=== PATIENT | female | born 1985 | race Caucasian/White ===

== ENCOUNTER 2020-05-26 12:33 | Outpatient (RCR) | payer MEDICARE, MEDICAID, SELFPAY | END 2020-06-16 23:59 | disposition home or self-care (01) | LOC: SPT 12:33 | PROVIDERS: PCP Family Medicine; Visit Provider Family Medicine | DX: S83.091D Other subluxation of right patella, subsequent encounter (principal); X58.XXXD Exposure to other specified factors, subsequent encounter | CPT/HCPCS: 97110; 97161 ==

== ENCOUNTER 2020-06-23 20:00 | Outpatient (CLI) | payer MEDICARE, MEDICAID, SELFPAY | END 2020-06-23 20:01 | disposition home or self-care (01) | LOC: SLEEP 06-24 09:57 | PROVIDERS: PCP Family Medicine; Visit Provider Family Medicine | DX: G47.33 Obstructive sleep apnea (adult) (pediatric) (principal) | CPT/HCPCS: 95811 ==

== ENCOUNTER 2020-08-22 06:03 | Day surgery (SDC) | payer MEDICARE, MEDICAID, SELFPAY ==
[2020-08-21 11:15] VITALS: BMI 67.3
[2020-08-22 06:33] VITALS: BP 115/70; PULSE 93; RESP 18; TEMP 36.9; O2SAT 93
[2020-08-22] MEDS: sodium chloride 0.9% 1,000 ML 30 ML IV (06:43)
--- NOTE | 2020-08-22 06:50 | ANES.PREANE2 ---
Pre-Anesthetic Assessment Pre-Anesthetic Assessment: Height/Weight: Height 1.35 m Weight 122.016 kg Temp Pulse Resp BP Pulse Ox 98.4 F 93 18 115/70 93 08/22/20 06:33 08/22/20 06:33 08/22/20 06:33 08/22/20 06:33 08/22/20 06:33 Preop Diagnosis: epigastric pain Proposed Procedure: Operation Date: 08/22/20 07:00 Proposed Procedures p EGD(Not Applicable) - Alexander Steven MD Was Beta Reanna taken within 24 hours: N/A Last intake: Intake Last Liquid Date 08/21/20 Last Solid Date 08/21/20 Last Intake: 00:00 Social: Social History: No alcohol and No tobacco Exam: Pre-Anes Outpt Exam: alert, oriented x 3, clear to auscultation bilaterally and regular rate & rhythm Additional Exam Findings (including area of procedure): MR Airway: Submandibular: Other Cervical ROM: Other MP: 4 (Thick neck. Poss diff intubation) Dentition: Full History/ROS: No significant history except as noted and No significant complaints Pulmonary: Pulmonary: Asthma, PIKE and SOB Comments: Pulm HTN. CV/HEM: CV/HEM: CHF : : None reported Hepatic: Hepatic: None reported GI: GI: GERD Metabolic: Metabolic: Morbid obesity Musc/skel: Musc/skel: OA/DJD Neuropsych: Neuropsych: None reported Anesthetic Plan: ASA status: 4 Anesthesia: MAC Risk of > 500 ml blood loss (7ml/kg in children): No Meds/Allergies Current Medications: Current Medications Generic Name Dose Route Start Last Admin Trade Name Freq PRN Reason Stop Dose Admin Sodium Chloride 1,000 mls @ 30 ml s/hr 08/22/20 06:15 08/22/20 06:43 Sodium Chloride 0.9% IV 08/23/20 06:14 30 mls/hr .Q24H TISH Administration Data Anesthesia Cardiac Studies: No Data to Display
--- NOTE | 2020-08-22 07:18 | W.PM.OPSUD ---
Surgery/Procedure H&P Update DATE OF PROCEDURE: August 22, 2020 DATE H&P PERFORMED: 07/25/20 PREOP DIAGNOSIS: epigastric pain PLANNED PROCEDURE: Operation Date: 08/22/20 07:00 Proposed Procedures p EGD(Not Applicable) - Alexander Steven MD Related Problem List Diagnoses (1) Epigastric pain: (2) Down syndrome:
[2020-08-22 07:24] VITALS: BP 99/54; PULSE 91; RESP 20; TEMP 36.3; O2SAT 97
[2020-08-22 07:49] VITALS: BP 112/83; PULSE 99; RESP 20; O2SAT 93
--- NOTE | 2020-08-22 15:26 | ANE.PACU2 ---
Inpatient post-anesthesia follow up: Airway intact: Yes Vital signs: Temperature 97.4 F Pulse Rate 99 Respiratory Rate 20 Blood Pressure 112/83 Pulse Oximetry 93 Oxygen Delivery Me thod Nasal Cannula Oxygen Flow Rate 1 Fraction of Inspir ed Oxygen Hydration adequate: Yes Nausea and vomiting: No Pain level: 2 Mental status: Baseline
[2020-08-25 14:15] LABS: H. Pylori / CLO Test Negative
== END 2020-08-22 07:59 | disposition home or self-care (01) ==
PROVIDERS: PCP Family Medicine; Visit Provider Family Medicine
PROC: 0DJ08ZZ Inspection of Upper Intestinal Tract, Via Natural or Artificial Opening Endoscopic (ICD-10-PCS; CPT 43235; principal; 2020-08-22 07:00)
DX: R10.13 Epigastric pain (principal); Q90.9 Down syndrome, unspecified; K57.30 Diverticulosis of large intestine without perforation or abscess without bleeding; K29.70 Gastritis, unspecified, without bleeding; K25.9 Gastric ulcer, unspecified as acute or chronic, without hemorrhage or perforation; G47.30 Sleep apnea, unspecified; J45.909 Unspecified asthma, uncomplicated; E66.01 Morbid (severe) obesity due to excess calories; Z68.44 Body mass index [BMI] 60.0-69.9, adult; K21.9 Gastro-esophageal reflux disease without esophagitis; M19.90 Unspecified osteoarthritis, unspecified site
CPT/HCPCS: 12345; 43239; 87077; 88305; J2704; J7030

== ENCOUNTER 2021-05-09 10:46 | Inpatient (IN) | payer MEDICARE, MEDICAID, SELFPAY ==
[2021-05-09] VITALS (10 sets, daily range): BP systolic 99–122; BP diastolic 58–75; PULSE 60–110; RESP 16–26; TEMP 36.8–38.1; O2SAT 88–100; BMI 31.7
--- NOTE | 2021-05-09 10:58 | XRR_ITS ---
PROCEDURE INFORMATION: Exam: XR Chest Exam date and time: 05/09/2021 10:58 AM Age: 35 years old Clinical indication: Cough; Additional info: Dyspnea/cough TECHNIQUE: Imaging protocol: XR of the chest. Views: 1 view. COMPARISON: CR Chest 1 [place] [id number] 05/19/2019 7:13 PM FINDINGS: Lungs: There are bibasilar pulmonary infiltrates greater on the right side. Pleural spaces: Unremarkable. No pleural effusion. No pneumothorax. Heart/Mediastinum: Unremarkable. No cardiomegaly. Bones/joints: Unremarkable. XR/XR chest 1V portable [id number] IMPRESSION: Bibasilar pulmonary infiltrates. These may be due to a viral pneumonia. Radiation Dose CTDIVOL = (mGy): DLP = (mGy-cm)
--- NOTE | 2021-05-09 11:00 | ECG_ITS ---
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 Measurements Intervals [place] Rate: 109 P: 20 AL: 151 QRS: 64 QRSD: 86 T: 42 QT: 296 QTc: 399 Interpretive Statements SINUS TACHYCARDIA LOW QRS VOLTAGE IN PRECORDIAL LEADS [QRS DEFLECTION < 1.0 mV IN CHEST LEADS] Compared to ECG 05/19/2019 22:14:22 Sinus rhythm no longer present Electronically Signed On 05-10-2021 0:25:35 CDT by Bo Avila M.D. [id number] f
[2021-05-09 11:01] LABS: Alveolar-Arterial Oxygen Gradi 65.5 mmHg (5-10); Arterial Blood Gas Hematocrit 37.4 % (37-47); Base Excess ABG 12.2 mmol/L (-2.0-2.0); Blood Gas Allen Test Pos; Blood Gas Operator Identificat AMH; Blood Gas Sample Site Radial, left; Blood Gas Sample Type Arterial; HCO3 ABG 39.6 mmol/L (22-26); HGB O2 Sat 96.5 % (95-100); Ionized Calcium Level - ABG 1.2 mmol/L (1.1-1.4); Methemoglobin 0.8 % (0.4-1.5); Oxygen Device NRB; Oxygen Saturation ABG 98.2; Potassium Level - ABG 4.8 mmol/L (3.5-5.0); Total Hemoglobin 12.2 g/dL (12-16)
[2021-05-09 11:03] LABS: ABG PCO2 64.6 mmHg (35-45)
--- NOTE | 2021-05-09 11:10 | W.ED.SOB ---
HPI - SOB/Dyspnea General: Chief Complaint: Shortness of Breath/Dyspnea Stated Complaint: CHEST PAIN; SOB Time Seen by Provider: 05/09/21 10:49 History of Present Illness: HPI Narrative: 35-year-old female with a history of Down syndrome sleep apnea and pickwickian syndrome presents emergency room via EMS was called with complaints of chest discomfort and hypoxia. On arrival here she is on a 15 L nonrebreather however her oxygen sat is not tracking well intermittently go from the low 80s all the way to 100. She is awake and conversant essentially at her baseline. She does complain of some chest and abdominal discomfort. MD elicited complaint: shortness of breath and cough Pertinent past history: congestive heart failure, pneumonia and other (Pulmonary hypertension) Onset (ago): day(s) Severity: moderate Exacerbating factors: exertion and coughing Relieving factors: oxygen and rest Known history of: congestive heart failure and recurrent pneumonia Associated symptoms: Reports abdominal pain, chest congestion, chest pain and cough; Deny diaphoresis, dizziness, extremity pain, fever(s), hemoptysis, lightheadedness, myalgias, nausea, orthopnea, palpitations, paresthesias, polydipsia, polyuria, rash, sense of impending doom, syncope or vomiting Treatment prior to arrival: oxygen Review of Systems Const: Denies: fever(s) or diaphoresis ENMT: Denies: throat pain, ear or mastoid pain, nasal discharge or nasal congestion Card: Reports: chest pain; Denies: palpitations, lightheadedness, syncope or orthopnea Resp: Reports: chest congestion; Denies: hemoptysis GI: Reports: abdominal pain; Denies: nausea or vomiting : Denies: flank pain, difficulty voiding, dysuria, urinary frequency or urinary urgency Musc: Denies: extremity pain Skin/Breast: Denies: rash or pruritus Neuro: Denies: dizziness Endo: Denies: polyuria or polydipsia PFS ED PFSH: Medical History (Updated 05/09/21 @ 13:38 by Agustin Mejia MD) Abnormal TSH Acute bronchitis Allergic rhinitis Aortic valve sclerosis Asthma Asthma exacerbation BMI 60.0-69.9, adult Central sleep apnea Chronic diastolic CHF (congestive heart failure) Chronic osteoarthritis Club foot of both lower extremities Congestive heart failure Cough Dietary counseling and surveillance Down syndrome Edema Encounter for health education Epigastric pain Excessive sleepiness Hyperglycemia Hypoxia Knee deformity, congenital Macrocytosis Morbid obesity Obesity Overweight or obesity Pneumonia Pulmonary hypertension Right ankle pain Ringworm RUQ abdominal tenderness RUQ pain Screening for diabetes mellitus Screening, lipid Sleep apnea URI, acute Vitamin B 12 deficiency Weight gain Surgical History (Updated 05/09/21 @ 13:38 by Agustin Mejia MD) History of foot surgery Physical Exam Const: COMMON NORMALS: no acute distress GENERAL APPEARANCE: cooperative and comfortable ORIENTATION/CONSCIOUSNESS: Yes awake HENMT: COMMON NORMALS: normocephalic, atraumatic and hearing grossly normal bilaterally HEAD & SCALP: normocephalic and atraumatic Eye: COMMON NORMALS: Equal, round and reactive pupils present, EOMs intact bilaterally, conjunctivae normal and no scleral icterus CONJUNCTIVA: Yes conjunctivae normal PUPIL: Yes Equal, round and reactive pupils present Neck/C-Spine: COMMON NORMALS: full ROM, no lymphadenopathy, supple and no JVD Lymph: LYMPHATIC: no lymphedema noted Resp: COMMON NORMALS: normal respiratory effort, No retractions, No use of accessory muscles and clear to auscultation bilaterally AUSCULTATION: clear to auscultation bilaterally Cardio: COMMON NORMALS: no JVD, regular rate, regular rhythm and No murmurs present (Cardio) RATE: regular rate RHYTHM: regular rhythm GI: COMMON NORMALS: Soft to palpation and No hepatosplenomegaly present AUSCULTATION: Yes normoactive bowel sounds PALPATION: Yes Soft to palpation, No Tenderness to palpation present (GI), No Guarding due to palpation present (GI) and Yes No hepatosplenomegaly present Extremity: COMMON NORMALS: normal to inspection, capillary refill normal and no calf tenderness GENERAL: Yes edema (3+ lower extremity edema) Skin: COMMON NORMALS: no rashes or lesions noted GENERAL SKIN EXAM: no rashes or lesions noted Course Vital Signs: Vital signs: Vital Signs Temperature 98.3 F 05/09/21 10:50 Pulse Rate 70 05/09/21 14:06 Respiratory Rate 26 H 05/09/21 10:50 Blood Pressure 99/73 05/09/21 13:15 Pulse Oximetry 92 05/09/21 14:06 MDM - SOB/Dyspnea MDM Narrative: Medical decision making narrative: Hypoxia with bilateral lower lobe pneumonia. Discussed with hospitalist will test for Covid she is on BiPAP now doing well Levaquin and Zosyn started. Lab Data: Labs: Lab Results 05/09/21 05/09/21 05/09/21 10:49 11:50 11:50 WBC 10.7 10^3/uL H 10 ^3/uL (4.0-10.0) RBC 3.83 10^6/uL L 10 ^6/uL (4.1-5.3) Hgb 11.6 g/dL g/dL (11.5-15.3) Hct 37.9 % % (37.0-47.0) MCV 99.0 fl fl (81-99) MCH 30.3 pg pg (28.0-34.0) MCHC 30.6 g/dL g/dL (30.0-36.0) RDW 19.9 % H % (12.1-15.1) Plt Count 314 10^3/cmm 10^3 /cmm (130-400) MPV 9.8 fL fL (7.4-10.4) Neut % (Auto) 78.0 % % Lymph % (Auto) 11.5 % % [place] % (Auto) 9.3 % % Eos % (Auto) 0.1 % % Baso % (Auto) 0.7 % % Neut # (Auto) 8.33 10^3/uL H 10 ^3/uL (1.8-7.7) Lymph # (Auto) 1.2 10^3/uL 10^3/ uL (0.8-4.8) [place] # (Auto) 1.0 10^3/uL H 10^ 3/uL (0.2-0.9) Eos # (Auto) 0.0 10^3/uL 10^3/ uL (0.0-0.8) Baso # (Auto) 0.1 10^3/uL 10^3/ uL (0.0-0.1) Nucleated RBC % (a uto) 0.2 % % Nucleated RBCs # 0.0 /100WBC /100W BC Specimen Type Arterial Sample Site Radial, left ABG pH 7.40 (7.35-7.45) ABG pCO2 64.6 mmHg H* mmHg (35-45) ABG pO2 130.0 mmHg H mmHg (80.0-100.0) ABG HCO3 39.6 mmol/L H mmo l/L (22-26) ABG O2 Saturation 98.2 ABG Base Excess 12.2 mmol/L H mmo l/L (-2.0-2.0) Kavon Test Pos A-a O2 Gradient 65.5 mmHg H mmHg (5-10) Hematocrit 37.4 % % (37-47) Hgb O2 Saturation 96.5 % % (95-100) Carboxyhemoglobin 1.0 %THgb %THgb (0.4-20.1) Methemoglobin 0.8 % % (0.4-1.5) Total Hemoglobin 12.2 g/dL g/dL (12-16) Sodium 140.0 mmol/L mmol /L (131-143) Potassium 4.8 mmol/L mmol/L (3.5-5.0) Glucose 117.0 mg/dL H mg/ dL (70-115) Ionized Calcium 1.2 mmol/L mmol/L (1.1-1.4) O2 Delivery Device Nrb O2 Liters/Min 15.0 % % FiO2 100.0 % % Deputy Administrator ID Amh Chloride Carbon Dioxide Anion Gap BUN Creatinine GFR Calculation Calculated Osmolal ity Lactic Acid 0.6 mmol/L mmol/L (0.5-2.2) Calcium Total Bilirubin AST ALT Alkaline Phosphata se Troponin T Baselin e Total Protein Albumin Globulin Lipase Urine Color Urine Appearance Urine pH Ur Specific Gravit y Urine Protein Urine Glucose (UA) Urine Ketones Urine Blood Urine Nitrate Urine Bilirubin Urine Urobilinogen Ur Leukocyte [place] ase Urine RBC Urine WBC Ur Squamous Epith Cells Amorphous Sediment Urine Bacteria Urine Mucus SARS-CoV-2 Ag (Rap id) 05/09/21 05/09/21 05/09/21 11:50 11:50 12:34 WBC RBC Hgb Hct MCV MCH MCHC RDW Plt Count MPV Neut % (Auto) Lymph % (Auto) [place] % (Auto) Eos % (Auto) Baso % (Auto) Neut # (Auto) Lymph # (Auto) [place] # (Auto) Eos # (Auto) Baso # (Auto) Nucleated RBC % (a uto) Nucleated RBCs # Specimen Type Sample Site ABG pH ABG pCO2 ABG pO2 ABG HCO3 ABG O2 Saturation ABG Base Excess Kavon Test A-a O2 Gradient Hematocrit Hgb O2 Saturation Carboxyhemoglobin Methemoglobin Total Hemoglobin Sodium 139 mmol/L mmol/L (136-145) Potassium 4.0 mmol/L mmol/L (3.5-5.1) Glucose 105 mg/dL mg/dL (65-115) Ionized Calcium O2 Delivery Device O2 Liters/Min FiO2 Deputy Administrator ID Chloride 96 mmol/L L mmol/ L (98-107) Carbon Dioxide 37 mmol/L H mmol/ L (22-29) Anion Gap 10.0 (5-19) BUN 16 mg/dL mg/dL (6-20) Creatinine 0.8 mg/dL mg/dL (0.5-0.9) GFR Calculation 82.6 mL/min L mL/ min (90-130) Calculated Osmolal ity 290 mOsm/kg mOsm/ kg (285-295) Lactic Acid Calcium 8.6 mg/dL mg/dL (8.5-10.5) Total Bilirubin 0.3 mg/dL mg/dL (0.15-1.2) AST 20 U/L U/L (0-32) ALT 28 U/L U/L (0-33) Alkaline Phosphata se 97 IU/L IU/L (35-105) Troponin T Baselin e 39 ng/L H ng/L (0-10) Total Protein 7.1 g/dL g/dL (6.6-8.7) Albumin 3.7 g/dL g/dL (3.5-5.2) Globulin 3.4 g/dL g/dL (1.3-4.6) Lipase 11 U/L L U/L (13-60) Urine Color Yellow (Yellow) Urine Appearance Sl hazy (CLEAR) Urine pH 7 (5-7) Ur Specific Gravit y 1.010 (1.005-1.030) Urine Protein Trace (Negative) Urine Glucose (UA) Norm (Normal) Urine Ketones Negative (Negative) Urine Blood Neg (Negative) Urine Nitrate Negative (Negative) Urine Bilirubin Neg (Negative) Urine Urobilinogen 1 mg/dL H mg/dL (Negative) Ur Leukocyte [place] ase Negative (Negative) Urine RBC None /hpf /hpf (0-2) Urine WBC 0-4 /hpf H /hpf (0-5) Ur Squamous Epith Cells 5-10 /hpf H /hpf (0-5) Amorphous Sediment Not Reportable Urine Bacteria Trace /hpf /hpf (NONE) Urine Mucus Trace /hpf /hpf SARS-CoV-2 Ag (Rap id) 05/09/21 13:09 WBC RBC Hgb Hct MCV MCH MCHC RDW Plt Count MPV Neut % (Auto) Lymph % (Auto) [place] % (Auto) Eos % (Auto) Baso % (Auto) Neut # (Auto) Lymph # (Auto) [place] # (Auto) Eos # (Auto) Baso # (Auto) Nucleated RBC % (a uto) Nucleated RBCs # Specimen Type Sample Site ABG pH ABG pCO2 ABG pO2 ABG HCO3 ABG O2 Saturation ABG Base Excess Kavon Test A-a O2 Gradient Hematocrit Hgb O2 Saturation Carboxyhemoglobin Methemoglobin Total Hemoglobin Sodium Potassium Glucose Ionized Calcium O2 Delivery Device O2 Liters/Min FiO2 Deputy Administrator ID Chloride Carbon Dioxide Anion Gap BUN Creatinine GFR Calculation Calculated Osmolal ity Lactic Acid Calcium Total Bilirubin AST ALT Alkaline Phosphata se Troponin T Baselin e Total Protein Albumin Globulin Lipase Urine Color Urine Appearance Urine pH Ur Specific Gravit y Urine Protein Urine Glucose (UA) Urine Ketones Urine Blood Urine Nitrate Urine Bilirubin Urine Urobilinogen Ur Leukocyte [place] ase Urine RBC Urine WBC Ur Squamous Epith Cells Amorphous Sediment Urine Bacteria Urine Mucus SARS-CoV-2 Ag (Rap id) Negative (Negative) Discharge Plan Discharge Patient Disposition: Admitted As Inpatient Admit Provider: Agustin Mejia Clinical Impression: Community acquired pneumonia, Down syndrome Condition: Stable Discharge Diet: Usual diet Discharge Activity: Limit activity as instructed Coding Level of Care Code ED Insurance Verify Rep for Main Fwd Exam Comprehensive
[2021-05-09] MEDS: ondansetron 2 mg/ML SDV 2 mL 4 MG IVP ×2 (12:07→17:59)
[2021-05-09 12:11] LABS: Basophils # 0.1 10^3/uL (0.0-0.1); Basophils % 0.7 %; Eosinophils % 0.1 %; Hematocrit 37.9 % (37.0-47.0); Hemoglobin 11.6 g/dL (11.5-15.3); Lymphocytes # 1.2 10^3/uL (0.8-4.8); Lymphocytes % 11.5 %; Mean Corpuscular HGB Conc 30.6 g/dL (30.0-36.0); Mean Corpuscular Hemoglobin 30.3 pg (28.0-34.0); Mean Platelet Volume 9.8 fL (7.4-10.4); Monocytes % 9.3 %; Neutrophils # 8.33 10^3/uL (1.8-7.7); Nucleated Red Blood Cells % 0.2 %; Platelet Count 314 10^3/cmm (130-400); Red Blood Count 3.83 10^6/uL (4.1-5.3); Red Cell Distribution Width 19.9 % (12.1-15.1); White Blood Count 10.7 10^3/uL (4.0-10.0)
[2021-05-09 12:17] LABS: Lactic Sepsis W/Reflex 0.6 mmol/L (0.5-2.2)
[2021-05-09 12:35] LABS: Alanine Aminotransferase 28 U/L (0-33); Albumin Level 3.7 g/dL (3.5-5.2); Alkaline Phosphatase 97 IU/L (35-105); Aspartate Amino Transferase 20 U/L (0-32); Blood Urea Nitrogen 16 mg/dL (6-20); Calcium 8.6 mg/dL (8.5-10.5); Carbon Dioxide 37 mmol/L (22-29); Chloride 96 mmol/L (98-107); Globulin 3.4 g/dL (1.3-4.6); Glomerular Filtration Rate 82.6 mL/min (90-130); Glucose 105 mg/dL (65-115); Lipase 11 U/L (13-60); Osmolality Calculated 290 mOsm/kg (285-295); Sodium 139 mmol/L (136-145); Total Bilirubin 0.3 mg/dL (0.15-1.2); Total Protein 7.1 g/dL (6.6-8.7)
[2021-05-09 12:38] LABS: Troponin(5th) Baseline 39 ng/L (0-10)
[2021-05-09 12:55] LABS: Bilirubin Urine Neg (Negative); Blood Urine Neg (Negative); Glucose Urine UA Norm (Normal); Ketones Urine Negative (Negative); Leukocyte Esterase Urine Negative (Negative); Nitrate Urine Negative (Negative); Protein Urine Trace (Negative); Urine Appearance SL Hazy (CLEAR); Urine Color Yellow (Yellow); Urobilinogen Urine 1 mg/dL (Negative); pH Urine 7 (5-7)
[2021-05-09 12:56] LABS: Add Urine Microscopic? YES
[2021-05-09 12:57] LABS: WBC Urine 0-4 /hpf (0-5)
[2021-05-09 12:58] LABS: Add Urine Culture? No; Bacteria Urine TRACE /hpf; Mucus Urine TRACE /hpf
[2021-05-09] MEDS: piperacillin-tazobactam 3.375 GM in sodium chloride 0.9% (plus) 50 ML IV ×2 (13:10→21:58)
--- NOTE | 2021-05-09 13:37 | P.HP_ITS ---
Providers/Chief Complaint Primary Care Provider: Jorge Alex MD Chief Complaint: CHEST PAIN; SOB History of Present Illness Velma Valentino is a 35 year old female with history of Down's syndrome, BiPAP dependent, obesity, presented today with chief complaint of chest discomfort. Mother is at the bedside, who is stating that at baseline her daughter is completely independent, she is able to walk on her own to care of her needs she is on her own and communicates without any limitations. For last 3 days her BiPAP has been troubleshooting and today she figured out that oxygen was not attached properly when she checked her pulse ox it was around 44 and her heart rate was in 120s. She called EMS. When EMS arrived she was put on 15 L nonrebreather mask. In the ER she was put on BiPAP to decrease work of breathing. Her ABG revealed hypercalcemia however compensated hypercapnia. Patient is very pleasant and cooperative, she stated that she noticed some chest heaviness today with shortness of breath which has resolved after the use of BiPAP. She did not endorse active chest pain. No fever, nausea, vomiting, diarrhea. She is not vaccinated for COVID-19. In the ER she was diagnosed with bilateral pulmonary infiltrate, Covid antigen negative, PCR sent out. She is currently on BiPAP setting 16/10 FiO2 60% she does have leakage with usage of small BiPAP mask, requested nurse to update RT to get full facemask. Review of Systems Const: Reports: chills and body aches; Denies: fever(s) or malaise Eyes: Denies: change in vision ENMT: Denies: throat pain Card: Reports: dyspnea on exertion Resp: Reports: dyspnea and non-productive cough GI: Denies: abdominal pain : Denies: flank pain Musc: Denies: neck pain Skin/Breast: Denies: rash Neuro: Denies: headache(s) Psych: Denies: anxiety Endo: Denies: polyuria Jason/Lymph: Denies: easy bruising All/Imm: Denies: urticaria Medications/Allergies Home Medications Medication Instructions Recorded Confirmed Last Taken Type acetaminophen 500 mg PO QID PRN 08/21/20 05/09/21 08/21/20 History albuterol sulfate 2.5 mg INHALATION QID PRN 08/21/20 05/09/21 08/21/20 History furosemide 40 mg PO DAILY 08/21/20 05/09/21 05/08/21 History montelukast 10 mg PO BEDTIME 08/21/20 05/09/21 05/08/21 History pantoprazole 40 mg PO DAILY 08/21/20 05/09/21 05/08/21 History spironolactone 25 mg PO DAILY 08/21/20 05/09/21 05/08/21 History Allergies Allergy/AdvReac Type Severity Reaction Status Date / Time sulfamethoxazole Allergy ALGY-Rash Verified 08/22/20 06:30 [From Marra] theophylline Allergy ALGY-Rash Verified 08/22/20 06:30 trimethoprim [From ] Allergy ALGY-Rash Verified 08/22/20 06:30 PFSH Acute PFSH: Medical History Abnormal TSH Acute bronchitis Allergic rhinitis Aortic valve sclerosis Asthma Asthma exacerbation BMI 60.0-69.9, adult Central sleep apnea Chronic diastolic CHF (congestive heart failure) Chronic osteoarthritis Club foot of both lower extremities Congestive heart failure Cough Dietary counseling and surveillance Down syndrome Edema Encounter for health education Epigastric pain Excessive sleepiness Hyperglycemia Hypoxia Knee deformity, congenital Macrocytosis Morbid obesity Obesity Overweight or obesity Pneumonia Pulmonary hypertension Right ankle pain Ringworm RUQ abdominal tenderness RUQ pain Screening for diabetes mellitus Screening, lipid Sleep apnea URI, acute Vitamin B 12 deficiency Weight gain Surgical History History of foot surgery Family History (Updated 05/09/21 @ 16:41 by Agustin Mejia MD) Denies family history of Dementia Social History (Updated 05/09/21 @ 16:41 by Agustin Mejia MD) Smoking and tobacco status: never smoked Alcohol intake: never Substance/Drug Use: never Household members: family Housing: House Vitals/I&O/Wt Last Vital Signs Temp 98.3 F 05/09/21 10:50 Pulse 90 05/09/21 13:15 Resp 26 H 05/09/21 10:50 BP 99/73 05/09/21 13:15 Pulse Ox 90 05/09/21 13:15 Weight last 48 hrs Weight 83.915 kg Physical Exam Narrative: EXAM NARRATIVE: Pleasant young female BiPAP 16/50% Nonpitting edema bilateral Cushingoid appearance S1, S2 distant heart sounds Heart to assess volume status Distended abdomen with obesity Lower extremity nonpitting edema EOMI, PERRLA Nonfocal neuro deficit Appears stated age Urinary Catheter Management^: [place]: Cath Placed During This Visit: no Data : 05/09/21 11:50 05/09/21 11:50 Micro: Microbiology 05/09/21 11:53 Blood Culture - Preliminary Blood SPECIMEN COLLECTED 05/09/21 11:50 Blood Culture - Preliminary Blood SPECIMEN COLLECTED A&P Assessment and plan (1) Community acquired pneumonia: Status: Acute (2) Down syndrome: Status: Acute (3) Epigastric pain: Status: Acute Additional A&P Information Acute on chronic hypercapnic hypoxic respiratory failure Related to bilateral infiltrate Rule out COVID-19 pneumonia Requested urine antigen, procalcitonin and CRP For now we will continue on antibiotics cefepime and Zosyn no active wheezing noted She does have compensated hypercapnic respiratory failure, baseline bicarb seems around 30-35 current bicarb 37 He is awake and alert no signs of CO2 narcosis Follow-up with Covid PCR results she is not vaccinated She does use BiPAP at home Atypical chest pain: Troponin negative delta EKG without ischemic on infarctive changes, most likely her symptoms were related to underlying respiratory failure, will check D-dimer to rule out PE Diastolic congestive heart failure without acute exacerbation Continue home regimen of Lasix Cardiac diet Full code DVT prophylaxis Lovenox Attestations Medical Necessity Statement*: >2 midnights expected Time Spent in Patient Care: Greater than 35 minutes Coding Level of Care Code Acute Tool Grinding Technician for [facility] Fwd Diagnoses Community acquired pneumonia J18.9 Down syndrome Q90.9 Epigastric pain R10.13
[2021-05-09] MEDS: levofloxacin-dextrose 5 % 750 MG/150 ML PREMIX 100 MG IV (13:55)
[2021-05-09 13:57] LABS: SARS Covid-2 Antigen Negative (Negative)
[2021-05-09 14:23] LABS: Troponin 5 2HR 34.08 ng/L (0-10)
--- NOTE | 2021-05-09 17:00 | ECG_ITS ---
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 Measurements Intervals [place] Rate: 85 P: 4 ME: 155 QRS: 71 QRSD: 82 T: 40 QT: 337 QTc: 401 Interpretive Statements SINUS RHYTHM LOW QRS VOLTAGE IN PRECORDIAL LEADS [QRS DEFLECTION < 1.0 mV IN CHEST LEADS] POSSIBLE ANTERIOR MYOCARDIAL INFARCTION , OF INDETERMINATE AGE [30 ms Q WAVE IN V3/V4, OR R < 0.2 mV IN V4] Compared to ECG 05/09/2021 10:57:44 Myocardial infarct finding now present Sinus tachycardia no longer present Electronically Signed On 05-10-2021 18:39:04 CDT by Jones Delgadillo M.D. [id number]
[2021-05-09 17:14] LABS: Procalcitonin 0.11 ng/mL (0-0.5)
[2021-05-09] MEDS: cefepime 2,000 MG in sodium chloride 0.9% (plus) 50 ML 100 MG IV (17:55)
[2021-05-09 18:35] LABS: Troponin 5 6HR 30.09 ng/L (0-10)
[2021-05-09] MEDS: montelukast sodium 10 mg Tablet PO (20:04)
[2021-05-10] VITALS (11 sets, daily range): BP systolic 90–100; BP diastolic 59–65; PULSE 73–97; RESP 16–20; TEMP 36.3–37.1; O2SAT 92–99
[2021-05-10 04:43] LABS: ABG PH Result 7.32 (7.35-7.45); Arterial Blood Gas Hematocrit 36.8 % (37-47); Base Excess ABG 12.3 mmol/L (-2.0-2.0); Blood Gas Allen Test Pos; Blood Gas Sample Type Arterial; HCO3 ABG 41.6 mmol/L (22-26); PO2 ABG 81.3 mmHg (80.0-100.0)
[2021-05-10 04:46] LABS: Blood Gas Sample Site Radial, right; Oxygen Device BIPAP
[2021-05-10 04:50] LABS: ABG PCO2 81.6 mmHg (35-45)
[2021-05-10] MEDS: cefepime 2,000 MG in sodium chloride 0.9% (plus) 50 ML 100 MG IV ×2 (05:02→18:20)
[2021-05-10] MEDS: piperacillin-tazobactam 3.375 GM in sodium chloride 0.9% (plus) 50 ML IV ×3 (05:32→20:30)
[2021-05-10 05:57] LABS: Basophils # 0.1 10^3/uL (0.0-0.1); Basophils % 1.1 %; Eosinophils % 0.5 %; Hematocrit 36.5 % (37.0-47.0); Hemoglobin 10.9 g/dL (11.5-15.3); Lymphocytes # 1.3 10^3/uL (0.8-4.8); Lymphocytes % 15.9 %; Mean Corpuscular HGB Conc 29.9 g/dL (30.0-36.0); Mean Corpuscular Hemoglobin 30.4 pg (28.0-34.0); Mean Corpuscular Volume 101.7 fl (81-99); Mean Platelet Volume 9.9 fL (7.4-10.4); Monocytes # 0.9 10^3/uL (0.2-0.9); Monocytes % 10.9 %; Neutrophils # 5.97 10^3/uL (1.8-7.7); Nucleated Red Blood Cells % 0.2 %; Platelet Count 285 10^3/cmm (130-400); Red Blood Count 3.59 10^6/uL (4.1-5.3); White Blood Count 8.4 10^3/uL (4.0-10.0)
[2021-05-10 06:20] LABS: Alanine Aminotransferase 24 U/L (0-33); Alkaline Phosphatase 84 IU/L (35-105); Anion Gap 9.5 (5-19); Aspartate Amino Transferase 15 U/L (0-32); Blood Urea Nitrogen 13 mg/dL (6-20); Calcium 8.5 mg/dL (8.5-10.5); Carbon Dioxide 37 mmol/L (22-29); Chloride 100 mmol/L (98-107); Globulin 3.3 g/dL (1.3-4.6); Glomerular Filtration Rate 82.6 mL/min (90-130); Glucose 99 mg/dL (65-115); Magnesium 2.1 mg/dL (1.7-2.3); Osmolality Calculated 294 mOsm/kg (285-295); Potassium 4.5 mmol/L (3.5-5.1); Sodium 142 mmol/L (136-145); Total Bilirubin 0.5 mg/dL (0.15-1.2); Total Protein 6.3 g/dL (6.6-8.7)
[2021-05-10] MEDS: spironolactone 25 mg Tablet PO (08:11)
[2021-05-10] MEDS: FUROsemide 40 mg Tablet PO (08:11)
[2021-05-10] MEDS: pantoprazole DR 40 mg Tablet PO (08:11)
[2021-05-10] MEDS: ipratropium-albuterol 3 mL Neb INHALATION (08:45)
[2021-05-10 09:35] LABS: D Dimer 2.08 ug/mIFEU (0-0.59)
--- NOTE | 2021-05-10 10:34 | XRR_ITS ---
PROCEDURE INFORMATION: Exam: XR Chest Exam date and time: 05/10/2021 10:34 AM Age: 35 years old Clinical indication: Shortness of breath; Additional info: Follow up infiltrate/ pneumonia TECHNIQUE: Imaging protocol: XR of the chest. Views: 1 view. COMPARISON: CR (CHEST, ) 05/09/2021 12:02 PM FINDINGS: Lungs: Scattered linear opacities in both lungs are slightly increased. Mild ground-glass opacities in the upper lobes. Pleural spaces: Small right pleural effusion. Heart/Mediastinum: Unremarkable. No cardiomegaly. Bones/joints: Old right rib fractures. XR/XR chest 1V portable [id number] IMPRESSION: 1. Slightly worsened multilobar pneumonia and atelectasis. Radiation Dose CTDIVOL = (mGy): DLP = (mGy-cm)
--- NOTE | 2021-05-10 12:14 | PM.PN ---
Subjective Subjective: Interval history: Seen this morning. She was sitting up in her recliner on 10 L nasal cannula. Was able to make her needs known. No acute events overnight. She has come down from 15 L to 10 L. Afebrile overnight. Blood pressure soft but seems to be her range ever since she has been here. D-dimer has been ordered. X-ray did show bibasilar pulmonary infiltrate today. Right side greater than left according to today's x-ray. Vitals/I&O/Wt Last Vital Signs Temp 98.7 F 05/10/21 12:00 Pulse 81 05/10/21 12:00 Resp 17 05/10/21 12:00 BP 96/61 05/10/21 12:00 Pulse Ox 96 05/10/21 12:00 05/09/21 05/10/21 05/10/21 22:59 06:59 14:59 Intake Total 1040 / 1090 100 / 1190 410 / 410 Output Total 300 / 300 640 / 940 Balance 740 / 790 -540 / 250 410 / 410 Weight last 48 hrs Weight 83.915 kg Physical Exam Narrative: EXAM NARRATIVE: General: Alert patient seen sitting up in recliner. She is sleeping. Does wake up to answer questions not drowsy or lethargic or obtunded. She tells me she is feeling okay. HEENT: Normocephalic, atraumatic, EOMI, breathing 10 L nasal cannula. Cardio: Regular rate rhythm, normal S1-S2, no murmurs rubs gallops, unable to assess JVD due to neck size and body habitus. Respiratory: Good bilateral air entry on anterior lung jack. Unable to auscultate the posterior. No wheezes rhonchi appreciated in anterior lung jack., GI: Abdomen soft, nontender, nondistended, bowel sounds + Extremities: Lower extremity edema present bilaterally 1+ but not pitting., no cyanosis Urinary Catheter Management^: Faulkner: Cath Placed During This Visit: no Reason for Continuing Indwelling Catheter: Acute Urinary Retention or Obstruction Data : 05/10/21 05:04 05/10/21 05:04 Micro: Microbiology 05/09/21 11:53 Blood Culture - Preliminary Blood NEGATIVE TO DATE 05/09/21 11:50 Blood Culture - Preliminary Blood NEGATIVE TO DATE 10/23/21 18:21 Legionella Urinary Antigen - Final Urine Catheterized 05/09/21 18:21 Bacterial Antigens - Final Urine,Clean Catch A&P Assessment and plan (1) Community acquired pneumonia: Status: Acute (2) Down syndrome: Status: Acute (3) Epigastric pain: Status: Acute Additional A&P Information Acute on chronic hypercapnic hypoxic respiratory failure Related to bilateral infiltrate Rule out COVID-19 pneumonia MRSA nares negative, urine antigens negative, bacterial antigens negative. X-ray today does show increasing bilateral infiltrates right greater than left. We will continue cefepime Zosyn for now. no active wheezing noted She does have compensated hypercapnic respiratory failure, baseline bicarb seems around 30-35 current bicarb 37 SHe is awake and alert no signs of CO2 narcosis Follow-up with Covid PCR results she is not vaccinated. Patient results pending She does use BiPAP at home. Have discussed with medical case manager for replacing her machine potentially as there is a question of it not working prior to admission. Atypical chest pain: Troponin negative delta EKG without ischemic on infarctive changes, most likely her symptoms were related to underlying respiratory failure, D-dimer did come elevated. Will order CTA chest stat to rule out pulmonary embolism at this point. Diastolic congestive heart failure without acute exacerbation Continue home regimen of Lasix Cardiac diet Full code DVT prophylaxis Lovenox Attestations Medical Necessity Statement*: Still requiring high oxygen. Anticipate another 48 hours of stay. Coding Level of Care Code Acute Single Pointed Operator for [facility] Diagnoses Community acquired pneumonia J18.9 Down syndrome Q90.9 Epigastric pain R10.13
--- NOTE | 2021-05-10 15:06 | CTR_ITS ---
PROCEDURE INFORMATION: Exam: CTA Chest With Contrast Exam date and time: 05/10/2021 3:06 PM Age: 35 years old Clinical indication: Shortness of breath; Additional info: Rule out pe TECHNIQUE: Imaging protocol: Computed tomographic angiography of the chest with contrast. 3D rendering (Not supervised by radiologist): MIP and/or 3D reconstructed images were created by the technologist. Radiation optimization: All CT scans at this facility use at least one of these dose optimization techniques: automated exposure control; mA and/or kV adjustment per patient size (includes targeted exams where dose is matched to clinical indication); or iterative reconstruction. Contrast material: OMNIPAQUE 350; Contrast volume: 523 ml; Contrast route: INTRAVENOUS (IV); COMPARISON: CR (CHEST, ) 05/10/2021 4:45 PM RADIATION DOSE METRICS: Total DLP (mGy-cm): 515.71 FINDINGS: Pulmonary arteries: Normal. No pulmonary emboli. Aorta: Unremarkable. No aortic aneurysm. No aortic dissection. Lungs: Consolidation in the posterior right lower lobe. Scattered mild ground-glass opacities in the upper lobes. Scattered linear opacities throughout both lungs. Calcified granuloma in the right lung. Pleural spaces: Small right pleural effusion. No pneumothorax. Heart: Small pericardial effusion. No cardiomegaly. No pericardial effusion. Lymph nodes: Unremarkable. No enlarged lymph nodes. Gallbladder and bile ducts: Small calcified stones in the gallbladder neck. The gallbladder is incompletely visualized. Bones/joints: Old right rib fractures. No acute fracture. Soft tissues: Unremarkable. CT/CT angio chest PE protcl [id number] IMPRESSION: 1. No evidence for pulmonary embolus. 2. Right lower lobe consolidation and patchy ground-glass and linear opacities in both lungs. This most likely represents multilobar pneumonia with scattered atelectasis. 3. Small right pleural effusion. Radiation Dose CTDIVOL = (mGy): DLP = 515.71 (mGy-cm)
[2021-05-10] MEDS: ondansetron 2 mg/ML SDV 2 mL 4 MG IVP (15:24)
[2021-05-10 15:38] LABS: Quest SARS-CoV-2 RNA NOT DETECTED (NOT DETECTED)
[2021-05-10] MEDS: iohexol 350 mg/mL 100 mL Btl IV (17:07)
[2021-05-10] MEDS: montelukast sodium 10 mg Tablet PO (20:27)
[2021-05-11] VITALS: BP 98/73; PULSE 92; RESP 17; TEMP 36.7; O2SAT 94
[2021-05-11 04:00] VITALS: BP 100/71; PULSE 90; RESP 17; TEMP 36.7; O2SAT 95
[2021-05-11] MEDS: cefepime 2,000 MG in sodium chloride 0.9% (plus) 50 ML 100 MG IV (05:16)
[2021-05-11 05:51] LABS: Basophils # 0.1 10^3/uL (0.0-0.1); Eosinophils # 0.2 10^3/uL (0.0-0.8); Eosinophils % 1.7 %; Hematocrit 38.3 % (37.0-47.0); Hemoglobin 11.6 g/dL (11.5-15.3); Lymphocytes # 1.1 10^3/uL (0.8-4.8); Lymphocytes % 12.3 %; Mean Corpuscular HGB Conc 30.3 g/dL (30.0-36.0); Mean Corpuscular Hemoglobin 31.4 pg (28.0-34.0); Mean Corpuscular Volume 103.8 fl (81-99); Mean Platelet Volume 10.2 fL (7.4-10.4); Monocytes # 0.9 10^3/uL (0.2-0.9); Monocytes % 9.8 %; Neutrophils # 6.52 10^3/uL (1.8-7.7); Neutrophils % 74.9 %; Nucleated Red Blood Cells % 0 %; Platelet Count 308 10^3/cmm (130-400); Red Blood Count 3.69 10^6/uL (4.1-5.3); Red Cell Distribution Width 19.7 % (12.1-15.1); White Blood Count 8.7 10^3/uL (4.0-10.0)
[2021-05-11] MEDS: piperacillin-tazobactam 3.375 GM in sodium chloride 0.9% (plus) 50 ML IV ×3 (05:57→22:32)
[2021-05-11 06:21] LABS: Blood Urea Nitrogen 12 mg/dL (6-20); Calcium 8.5 mg/dL (8.5-10.5); Chloride 98 mmol/L (98-107); Glomerular Filtration Rate 82.6 mL/min (90-130); Glucose 95 mg/dL (65-115); Osmolality Calculated 298 mOsm/kg (285-295); Sodium 144 mmol/L (136-145)
[2021-05-11 06:24] LABS: Anion Gap 9.6 (5-19)
[2021-05-11 06:25] LABS: Carbon Dioxide 41 mmol/L (22-29); Potassium 4.6 mmol/L (3.5-5.1)
[2021-05-11] MEDS: pantoprazole DR 40 mg Tablet PO (07:55)
[2021-05-11] MEDS: spironolactone 25 mg Tablet PO (07:56)
[2021-05-11] MEDS: FUROsemide 40 mg Tablet PO (07:56)
[2021-05-11 07:58] VITALS: BP 100/64; PULSE 81; RESP 16; TEMP 37.2; O2SAT 92
--- NOTE | 2021-05-11 08:13 | P.PN_ITS ---
Subjective Subjective: Interval history: Seen this morning. Patient appearing slightly better. On 10 L nasal cannula at this point. She was using incentive spirometer when I walked into the room. She told me she was feeling well and had no complaints today. I also met the mother at bedside for an update. Patient did come down 15 L to 10 L. CTA ruled out PE. Covid test is negative. She did use the BiPAP overnight. Vitals/I&O/Wt Last Vital Signs Temp 99.0 F 05/11/21 07:58 Pulse 81 05/11/21 07:58 Resp 16 05/11/21 07:58 BP 100/64 05/11/21 07:58 Pulse Ox 92 05/11/21 07:58 05/10/21 05/11/21 05/11/21 22:59 06:59 14:59 Intake Total 220 / 990 100 / 1090 Output Total 2400 / 2400 600 / 3000 Balance -2180 / -1410 -500 / -1910 Weight last 48 hrs Weight 83.915 kg Physical Exam Narrative: EXAM NARRATIVE: General: Alert patient seen sitting up in bed watching TV and using incentive spirometer. HEENT: Normocephalic, atraumatic, EOMI, breathing 10 L nasal cannula. Cardio: Regular rate rhythm, normal S1-S2, no murmurs rubs gallops, unable to a ssess JVD due to neck size and body habitus. Respiratory: Good bilateral air entry on anterior lung jack. Unable to auscultate the posterior. No wheezes rhonchi appreciated in anterior lung jack., Mild crackles bilaterally at bases. GI: Abdomen soft, nontender, nondistended, bowel sounds + Extremities: No lower extremity edema today. Urinary Catheter Management^: Faulkner: Cath Placed During This Visit: no Reason for Continuing Indwelling Catheter: Other Data : 05/11/21 05:22 05/11/21 05:22 Micro: Microbiology 05/09/21 18:24 MRSA Culture - Final Nose 05/09/21 11:53 Blood Culture - Preliminary Blood NEGATIVE TO DATE 05/09/21 11:50 Blood Culture - Preliminary Blood NEGATIVE TO DATE 05/09/21 18:21 Legionella Urinary Antigen - Final Urine Catheterized 05/09/21 18:21 Bacterial Antigens - Final Urine,Clean Catch A&P Assessment and plan (1) Community acquired pneumonia: Status: Acute (2) Down syndrome: Status: Acute (3) Epigastric pain: Status: Acute Additional A&P Information #Acute on chronic hypercapnic hypoxic respiratory failure Related to bilateral infiltrate #Right lower lobe pneumonia, multifocal pneumonia #Pickwickian syndrome #Pulmonary hypertension with sleep apnea MRSA nares negative, urine antigens negative, bacterial antigens negative. no active wheezing noted She does have compensated hypercapnic respiratory failure, baseline bicarb seems around 30-35 current bicarb 37 SHe is awake and alert no signs of CO2 narcosis Covid PCR is negative. CTA for PE is also negative. Will need BiPAP machine at discharge. Pulmonology was consulted. We will change her antibiotics to Zosyn and Levaquin at this point. She will require Levaquin at discharge. She does use BiPAP at home. Have discussed with patient case coordinator for replacing her machine potentially as there is a question of it not working prior to admission. Pulmonology recommendations appreciated. Atypical chest pain: Troponin negative delta EKG without ischemic on infarctive changes, most likely her symptoms were related to underlying respiratory failure, CT ruled out PE. Diastolic congestive heart failure without acute exacerbation We will hold off on IV Lasix as patient has been well diuresed at this point. Will resume at discharge. Cardiac diet Full code DVT prophylaxis Lovenox Attestations Medical Necessity Statement*: Requires greater than 48-hour hospital stay. Still requiring high amounts of oxygen. 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
[2021-05-11] MEDS: enoxaparin 40 mg/0.4 mL Syringe SUBCUT (13:49)
[2021-05-11] MEDS: levofloxacin-dextrose 5 % 750 MG/150 ML PREMIX 100 MG IV (13:50)
--- NOTE | 2021-05-11 14:40 | P.CONIM_ITS ---
Providers/Reason For Consult Consulting Physician/Specialty*: Pulmonary critical care medicine Reason for Consult*: Acute on chronic hypoxic and hypercapnic respiratory failure Attending Physician: Nkechi Casillas MD Primary Care Provider: Jorge Alex MD History of Present Illness History of Present Illness Velma Valentino is a 35 year old female with a history of Down syndrome, oxygen dependency at home who presented to the hospital on May 09 with chest discomfort. Upon admission, the patient was found to have acute on chronic hypoxic and hypercapnic respiratory failure. The admission arterial blood gas showed likely respiratory alkalosis. The initial blood gas was seven-point 4/65/130 on nonrebreather mask. The following day on May 10 on BiPAP the patient's blood gas was 7.3 2/82/81 on 60% FiO2. The patient has a history of obstructive sleep apnea and is on home BiPAP. I believe the patient also has obesity hypoventilation syndrome. The arterial blood gas that was obtained on the is consistent with compensated chronic hypercapnic respiratory failure on top of hypoxic respiratory failure. Based on the patient's blood work from May 2019, at that time her baseline PCO2 was 60s. I am unsure whether this has gotten worse over the past couple of years. It appears that the patient did not use her BiPAP for a few days prior to her hospitalization. The patient carries a diagnosis of heart failure however I believe this is likely right ventricular failure rather than left heart disease. The patient likely has elevated pulmonary artery pressure with evidence of RV dysfunction and dependent edema. The patient underwent a CT angiogram of the chest on May 10. There was no pulmonary embolism. Right lower lobe consolidation was found. The patient also had patchy groundglass opacities in both lungs. There was small right-sided p leural effusion. I have reviewed the patient's previous CT scan as well. The patient likely has a component of tracheobronchomalacia with significant narrowing at the level of the rubina and right and left mainstem bronchus. I had seen and examined the patient in her room today. The patient was awake alert and oriented. She was having lunch and stated that she had been doing significantly better than before. Her mother is at bedside. Review of Systems Narrative: General: No fevers chills night sweats or fatigue at this point Skin: No rash HEENT: No nasal congestion, Respiratory: No significant cough, shortness of breath with exertion Cardiovascular: No chest pain Gastrointestinal: No abdominal pain, nausea, or vomiting Musculoskeletal: No joint pain or swelling Neurological: Patient is awake alert and oriented x3 Psychiatric: No anxiety or depression. Meds/Allergies Home Medications and Allergies Home Medications Medication Instructions Recorded Confirmed Last Taken Type acetaminophen 500 mg PO QID PRN 08/21/20 05/09/21 08/21/20 History albuterol sulfate 2.5 mg INHALATION QID PRN 08/21/20 05/09/21 08/21/20 History furosemide 40 mg PO DAILY 08/21/20 05/09/21 05/08/21 History montelukast 10 mg PO BEDTIME 08/21/20 05/09/21 05/08/21 History pantoprazole 40 mg PO DAILY 08/21/20 05/09/21 05/08/21 History spironolactone 25 mg PO DAILY 08/21/20 05/09/21 05/08/21 History Allergies Allergy/AdvReac Type Severity Reaction Status Date / Time sulfamethoxazole Allergy ALGY-Rash Verified 08/22/20 06:30 [From ] theophylline Allergy ALGY-Rash Verified 08/22/20 06:30 trimethoprim [From ] Allergy ALGY-Rash Verified 08/22/20 06:30 Current Medications Current Medications Generic Name Dose Route Start Last Admin Trade Name Freq PRN Reason Stop Dose Admin Albuterol/Ipratropium 3 ml 05/09/21 15:34 05/10/21 08:45 Ipratropium-Albuterol 3 Ml Neb INHALATION 3 ml Q6H PRN Administration SHORTNESS OF BREATH Enoxaparin Sodium 40 mg 05/11/21 12:30 05/11/21 13:49 Enoxaparin 40 Mg/0.4 Ml Syringe SUBCUT 40 mg Q24H TISH Administration Furosemide 40 mg 05/10/21 09:00 05/11/21 07:56 Furosemide 40 Mg Tablet PO 40 mg DAILY TISH Administration Piperacillin Sod/Tazobactam 50 mls @ 12.5 mls/hr 05/09/21 21:00 05/11/21 10:55 Sod 3.375 gm/ Sodium Chloride IV Infused Q8H TISH Infusion Protocol Levofloxacin/Dextrose 750 mg in 150 mls @ 100 mls/hr 05/11/21 12:30 05/11/21 13:50 Levaquin-D5w IV 05/16/21 12:29 100 mls/hr Q24H TISH Administration Protocol Montelukast Sodium 10 mg 05/09/21 21:00 05/10/21 20:27 Montelukast Sodium 10 Mg Tablet PO 10 mg BEDTIME TISH Administration Ondansetron HCl 4 mg 05/09/21 15:34 05/10/21 15:24 Ondansetron 2 Mg/Ml Sdv 2 Ml IVP 4 mg Q6H PRN Administration NAUSEA AND VOMITING Pantoprazole Sodium 40 mg 05/10/21 09:00 05/11/21 07:[address] 40 Mg Tablet PO 40 mg DAILY TISH Administration Spironolactone 25 mg 05/10/21 09:00 05/11/21 07:56 Spironolactone 25 Mg Tablet PO 25 mg DAILY TISH Administration PFSH Acute PFSH: Medical History Abnormal TSH Acute bronchitis Allergic rhinitis Aortic valve sclerosis Asthma Asthma exacerbation BMI 60.0-69.9, adult Central sleep apnea Chronic diastolic CHF (congestive heart failure) Chronic osteoarthritis Club foot of both lower extremities Congestive heart failure Cough Dietary counseling and surveillance Down syndrome Edema Encounter for health education Epigastric pain Excessive sleepiness Hyperglycemia Hypoxia Knee deformity, congenital Macrocytosis Morbid obesity Obesity Overweight or obesity Pneumonia Pulmonary hypertension Right ankle pain Ringworm RUQ abdominal tenderness RUQ pain Screening for diabetes mellitus Screening, lipid Sleep apnea URI, acute Vitamin B 12 deficiency Weight gain Surgical History History of foot surgery Family History Denies family history of Dementia Social History Smoking and tobacco status: never smoked Alcohol intake: never Substance/Drug Use: never Household members: family Housing: House Vitals/I&O/Wt Last Vital Signs Temp 99.0 F 05/11/21 07:58 Pulse 81 05/11/21 07:58 Resp 16 05/11/21 07:58 BP 100/64 05/11/21 07:58 Pulse Ox 92 05/11/21 07:58 05/10/21 05/11/21 05/11/21 22:59 06:59 14:59 Intake Total 220 / 990 100 / 1090 770 / 770 Output Total 2400 / 2400 600 / 3000 2200 / 2200 Balance -2180 / -1410 -500 / -1910 -1430 / -1430 Physical Exam Narrative: EXAM NARRATIVE: General: Patient is awake alert and oriented, in no distress. Neck: Unable to assess due to body habitus Respiratory: Auscultation: Coarse crackles at the right lower lung base, fine crackles at the left lower lung base, no wheezing or rhonchi Cardiovascular: Regular rate and rhythm, S1-S2 present, no murmur, no peripheral edema. Abdomen: Soft, nontender, distended from obesity, positive bowel sound Musculoskeletal: No obvious joint deformity Skin: No rash Neuro: The patient is able to answer questions and follows instructions, no gross motor deficit Urinary Catheter Management^: Faulkner: Cath Placed During This Visit: no Reason for Continuing Indwelling Catheter: Other Data Micro: Micro: Microbiology 05/09/21 18:24 MRSA Culture - Fin al Nose 05/09/21 11:53 Blood Culture - Pr eliminary Blood NEGATIVE TO HAN E 05/09/21 11:50 Blood Culture - Pr eliminary Blood NEGATIVE TO HAN E Other Data: Attestation for Other Data: I personally reviewed and interpreted the following: Other data: I have reviewed the patient's laboratory, microbiologic and radiologic data. Please see the HPI for detail A&P Assessment and plan (1) Acute on chronic respiratory failure with hypoxia and hypercapnia: The patient has a history of chronic hypoxic and hypercapnic respiratory failure. The hypoxic respiratory failure is likely secondary to chronic hypercapnic respiratory failure that the patient has developed secondary to obesity hypoventilation syndrome. Additionally, the patient has morbid obesity with likely atelectasis causing VQ mismatch contributing to this persistent hypoxic respiratory failure. Apparently the patient uses 5 L of oxygen at home at baseline. The patient suffered from multifocal pneumonia with denser consolidation in the right lower lobe which worsened the VQ mismatch requiring more oxygen supplementation. Additionally, I am unsure whether there had also been worsening of the chronic hypercapnic respiratory failure. At this point the patient is covered for her pneumonia. She has questionable tracheobronchomalacia based on the CT scan of the chest. Which can also contribute to atelectasis and worsening hypoxic respiratory failure. The patient will benefit from ambulation and incentive spirometry. Status: Acute (2) Community acquired pneumonia: The patient is currently covered with Zosyn and cefepime. I do not have strong suspicion for pseudomonal infection. We will discontinue the cefepime. Continue with Zosyn and add Levaquin. The patient will likely be discharged home on Levaquin. Status: Acute (3) Obesity hypoventilation syndrome: The patient has sleep apnea and obesity hypoventilation syndrome. She needs to use her BiPAP on a regular basis at nighttime. Additionally, the patient carries a diagnosis of heart failure however I believe the patient has RV dysfunction secondary to elevated pulmonary artery pressure with sleep apnea, obesity hypoventilation syndrome, morbid obesity, possibly nocturnal hypoxia. The patient had been adequately diuresed. We will hold of the diuretics for the time being. This can be resumed when the patient is discharged. I expect the patient to continue to make recovery and be discharged in the near future. 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
[2021-05-11] MEDS: acetaminophen 500 mg Tablet PO (15:33)
[2021-05-11 15:38] VITALS: BP 89/65; PULSE 100; RESP 17; TEMP 37.2; O2SAT 90
[2021-05-11 20:00] VITALS: BP 103/64; PULSE 94; RESP 24; TEMP 37.4; O2SAT 93
[2021-05-11] MEDS: montelukast sodium 10 mg Tablet PO (20:55)
[2021-05-11] MEDS: ondansetron 2 mg/ML SDV 2 mL 4 MG IVP (21:00)
[2021-05-11 22:45] VITALS: PULSE 91; RESP 19; O2SAT 95
[2021-05-12] VITALS (10 sets, daily range): BP systolic 89–104; BP diastolic 59–73; PULSE 76–102; RESP 16–18; TEMP 37–37.4; O2SAT 94–97
[2021-05-12 06:14] LABS: Basophils # 0.1 10^3/uL (0.0-0.1); Eosinophils # 0.3 10^3/uL (0.0-0.8); Eosinophils % 3.7 %; Hematocrit 37.4 % (37.0-47.0); Hemoglobin 11.2 g/dL (11.5-15.3); Lymphocytes # 1.1 10^3/uL (0.8-4.8); Mean Corpuscular HGB Conc 29.9 g/dL (30.0-36.0); Mean Corpuscular Volume 103.6 fl (81-99); Monocytes # 0.8 10^3/uL (0.2-0.9); Monocytes % 11.8 %; Neutrophils # 4.69 10^3/uL (1.8-7.7); Neutrophils % 66.9 %; Nucleated Red Blood Cells % 0 %; Platelet Count 303 10^3/cmm (130-400); Red Blood Count 3.61 10^6/uL (4.1-5.3); Red Cell Distribution Width 19.3 % (12.1-15.1)
[2021-05-12] MEDS: piperacillin-tazobactam 3.375 GM in sodium chloride 0.9% (plus) 50 ML IV ×2 (06:33→16:06)
[2021-05-12] MEDS: pantoprazole DR 40 mg Tablet PO (08:33)
--- NOTE | 2021-05-12 08:36 | P.PN_ITS ---
Subjective Subjective: Interval history: Seen this morning. Improving. Looks better on 7L NC using Icentive spirometer. No complaints offered. No acute events overnight Vitals/I&O/Wt Last Vital Signs Temp 98.8 F 05/12/21 08:00 Pulse 81 05/12/21 08:04 Resp 16 05/12/21 08:04 BP 92/67 05/12/21 08:00 Pulse Ox 94 05/12/21 08:04 05/11/21 05/12/21 05/12/21 22:59 06:59 14:59 Intake Total 800 / 1570 50 / 1620 Output Total 400 / 2600 Balance 800 / -630 -350 / -980 Physical Exam Narrative: EXAM NARRATIVE: General: Alert patient seen sitting up in bed watching TV and using incentive spirometer. She is perked up and talking today appearing energetic. HEENT: Normocephalic, atraumatic, EOMI, breathing 7 L nasal cannula. Cardio: Regular rate rhythm, normal S1-S2, no murmurs rubs gallops, unable to assess JVD due to neck size and body habitus. Respiratory: Good bilateral air entry b/l anterior and posterior jack. GI: Abdomen soft, nontender, nondistended, bowel sounds + Extremities: No lower extremity edema today. Urinary Catheter Management^: Faulkner: Cath Placed During This Visit: no Reason for Continuing Indwelling Catheter: Other Data : 05/12/21 05:57 05/12/21 08:20 A&P Assessment and plan (1) Community acquired pneumonia: Status: Acute (2) Down syndrome: Status: Acute (3) Epigastric pain: Status: Acute Additional A&P Information #Acute on chronic hypercapnic hypoxic respiratory failure Related to bilateral infiltrate #Right lower lobe pneumonia, multifocal pneumonia #Pickwickian syndrome #Pulmonary hypertension with sleep apnea MRSA nares negative, urine antigens negative, bacterial antigens negative. no active wheezing noted She does have compensated hypercapnic respiratory failure, baseline bicarb seems around 30-35 current bicarb 41 SHe is awake and alert no signs of CO2 narcosis Covid PCR is negative. CTA for PE is also negative. Will need BiPAP machine at discharge. Pulmonology was consulted. We will change her antibiotics to Zosyn and Levaquin at this point. She will require Levaquin at discharge. She does use BiPAP at home. Have discussed with therapeutic case manager for replacing her machine potentially as there is a question of it not working prior to admission. Pulmonology recommendations appreciated. She is improving. Today on 7L. Atypical chest pain: Troponin negative delta EKG without ischemic on infarctive changes, most likely her symptoms were related to underlying respiratory failure, CT ruled out PE. Diastolic congestive heart failure without acute exacerbation We will hold off on IV Lasix as patient has been well diuresed at this point. Will resume at discharge. 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
[2021-05-12 08:52] LABS: Anion Gap 9.2 (5-19); Blood Urea Nitrogen 10 mg/dL (6-20); Calcium 8.6 mg/dL (8.5-10.5); Chloride 93 mmol/L (98-107); Glomerular Filtration Rate 82.6 mL/min (90-130); Glucose 91 mg/dL (65-115); Osmolality Calculated 287 mOsm/kg (285-295); Potassium 4.2 mmol/L (3.5-5.1); Sodium 139 mmol/L (136-145)
[2021-05-12 09:00] LABS: Carbon Dioxide 41 mmol/L (22-29)
--- NOTE | 2021-05-12 09:24 | PC.CHAP ---
Pastoral Care Encounter/Spiritual Assessment Type of Contact [] Declined follow up specialist visit [] Patient/Family/Request visit [] Outpatient visit [] Follow-up visit [] Physician referral [] Code/Alert [x] Routine visit [] Staff referral [] Actively dying [] Patient sleeping [] Family support [] [] Out of room [] Palliative care [] [] Receiving care in room [] Pre-surgical visit [] Trauma [] Long length of stay [] ICU visit [] Other: Relational/Emotional Strength [x] Patient feels connected with others/family/visitors/staff [] Distress [] Loneliness/isolation [] Abandonment Spirituality of Patient [x] Person of Alexandra [] Attends Druze of their Alexandra [x] Believes in Prayer [] Reads Bible or Episcopalian materials [] There are Spiritual issues to be addressed Director Online Marketing Interventions [x] Prayer [x] Active listening [x] Non-anxious presence [x] Spiritual/emotional support [] Crisis/trauma care [] Spiritual counseling [] Bereavement support [] Provided bereavement packet [] Provided Bible/devotional materials [] Provided toy/stuffed animal, coloring book to patient or family member [] Provided Communion [] Anointing/[place] [] Salvation [x] Completed spiritual assessment [] Other: Impact on Illness or Injury [] Angry [] Fearful [] Anxious [] Often cries [] Exhaustion [] Unable to work [] Unable to attend church [] Unable to walk/stand [] Unable to read [] Unable to drive [] Unable to eat/drink [] Unable to sleep [] Unable to be with family [] Patient intubated [] Other: Summary Pt has Downs and her speech is a little difficult to understand, follow up specialist had to listen carefully. She had breakfast tray in front of her but the lid was not open. Director Online Marketing asked if she had eaten and indicated she had and enjoyed the meal. She has a mother who will come to visit later today. Pt. told me she has a birthday next week. She expressed excitement regarding her birthday. Time spent with patient 10m
[2021-05-12] MEDS: enoxaparin 40 mg/0.4 mL Syringe SUBCUT (12:42)
[2021-05-12] MEDS: levofloxacin-dextrose 5 % 750 MG/150 ML PREMIX 100 MG IV (12:42)
[2021-05-13] VITALS (8 sets, daily range): BP systolic 90–103; BP diastolic 55–70; PULSE 68–100; RESP 16–18; TEMP 36.8–37.3; O2SAT 82–95
[2021-05-13] MEDS: montelukast sodium 10 mg Tablet PO (00:19)
[2021-05-13] MEDS: piperacillin-tazobactam 3.375 GM in sodium chloride 0.9% (plus) 50 ML IV ×2 (01:06→08:53)
[2021-05-13 06:16] LABS: Blood Urea Nitrogen 12 mg/dL (6-20); Calcium 8.8 mg/dL (8.5-10.5); Carbon Dioxide 40 mmol/L (22-29); Chloride 95 mmol/L (98-107); Glomerular Filtration Rate 82.6 mL/min (90-130); Glucose 94 mg/dL (65-115); Osmolality Calculated 296 mOsm/kg (285-295); Sodium 143 mmol/L (136-145)
[2021-05-13 06:19] LABS: Anion Gap 12.5 (5-19); Potassium 4.5 mmol/L (3.5-5.1)
[2021-05-13] MEDS: pantoprazole DR 40 mg Tablet PO (08:53)
[2021-05-13] MEDS: enoxaparin 40 mg/0.4 mL Syringe SUBCUT (12:07)
[2021-05-13] MEDS: levofloxacin-dextrose 5 % 750 MG/150 ML PREMIX 100 MG IV (12:07)
--- NOTE | 2021-05-13 14:44 | P.DS_ITS ---
Discharge Providers Date of Admission: 05/09/21 13:29 Date of Discharge: May 13, 2021 Attending Provider at Admission: Agustin Mejia MD Attending Provider at Discharge: Nkechi Casillas MD Primary Care Provider: Jorge Alex MD Diagnoses at Discharge Discharge Diagnosis (1) Community acquired pneumonia: Status: Acute (2) Down syndrome: Status: Acute (3) Epigastric pain: Status: Resolved Permanent problem details: Prior to the procedure, I examined the patient, and spoke with the patient and her mother, there have been no changes in her health since examination my office. They wish to proceed with the procedure. Reason for Visit Reason for Visit: CHEST PAIN; SOB Hospital Course Hospital Course Velma Valentino is a 35 year old female with history of Down's syndrome, BiPAP dependent, obesity, presented today with chief complaint of chest discomfort. Mother is at the bedside, who is stating that at baseline her daughter is completely independent, she is able to walk on her own to care of her needs she is on her own and communicates without any limitations. For last 3 days her BiPAP has been troubleshooting and today she figured out that oxygen was not attached properly when she checked her pulse ox it was around 44 and her heart rate was in 120s. She called EMS. When EMS arrived she was put on 15 L nonrebreather mask. In the ER she was put on BiPAP to decrease work of breathing. Her ABG revealed hypercalcemia however compensated hypercapnia. Patient is very pleasant and cooperative, she stated that she noticed some chest heaviness today with shortness of breath which has resolved after the use of BiPAP. She did not endorse active chest pain. No fever, nausea, vomiting, diarrhea. She is not vaccinated for COVID-19. In the ER she was diagnosed with bilateral pulmonary infiltrate, Covid antigen negative, PCR sent out. She is currently on BiPAP setting 16/10 FiO2 60% she does have leakage with usage of small BiPAP mask, requested nurse to update RT to get full facemask. Course Patient was admitted for right lower lobe pneumonia. She has hx of pickwikian syndrome. O2 requirements went up to 15L nonrebereather. PE was neative. COVID negative. She was on zosyn and cefepime during hospital stay. SHe was seen by pulmnology due to o2 requirements not coming down. Eventually pt improved over next few days. She was dc home on levaquin and her baseline home O2. Physical Exam Narrative: EXAM NARRATIVE: General: Alert patient seen sitting up in bed having breakfast. HEENT: Normocephalic, atraumatic, EOMI, breathing 5 L nasal cannula. Cardio: Regular rate rhythm, normal S1-S2, no murmurs rubs gallops, unable to assess JVD due to neck size and body habitus. Respiratory: Good bilateral air entry b/l anterior and posterior jack. GI: Abdomen soft, nontender, nondistended, bowel sounds + Extremities: No lower extremity edema today. Urinary Catheter Management^: Faulkner: Cath Placed During This Visit: no Reason for Continuing Indwelling Catheter: Other Discharge Data Data Completed and Pending: Completed Studies During Hospitalization Category Date Time Status CT angio chest PE protcl [id number] Stat Cat Scan 05/10/21 15:06 Completed CXRP [XR chest 1V portable [id number]] U rgent Exams 05/10/21 10:34 Completed XR chest 1V tonny ble [id number] Stat Exams 05/09/21 10:58 Completed Pending at discharge Category Date Time Status Blood Culture Sta t Lab 05/09/21 11:53 Results Sputum Culture an d Gram Stain Routi ne Lab 05/09/21 15:34 Uncollected Labs from last 24 hours 05/13/21 05:37 Sodium 143 Potassium 4.5 Chloride 95 L Carbon Dioxide 40 H Anion Gap 12.5 BUN 12 Creatinine 0.8 GFR Calculation 82.6 L Glucose 94 Calculated Osmolal ity 296 H Calcium 8.8 Vitals: Last Vital Signs Temp 99.1 F 05/13/21 11:27 Pulse 100 05/13/21 11:27 Resp 17 05/13/21 11:27 BP 103/70 05/13/21 11:27 Pulse Ox 84 L 05/13/21 14:17 Discharge Plan Discharge Patient Disposition: Home Condition: Stable Prescriptions: New levofloxacin 750 mg tablet 750 mg PO DAILY 7 Days Qty: 7 RF: 0 Continued furosemide 40 mg tablet 40 mg PO DAILY RF: 0 albuterol sulfate 2.5 mg /3 mL (0.083 %) solution for nebulization 2.5 mg inhalation QID PRN (Reason: Wheezing) RF: 0 acetaminophen 500 mg tablet 500 mg PO QID PRN (Reason: Pain) RF: 0 spironolactone 25 mg tablet 25 mg PO DAILY RF: 0 pantoprazole 40 mg tablet,delayed release (DR/EC) 40 mg PO DAILY RF: 0 montelukast 10 mg tablet 10 mg PO BEDTIME RF: 0 Discharge Orders: Discharge Order (Routine); Ordered 05/13/21 Ordered By: Nkechi Casillas Other Ambulatory Orders: DME: Oxygen (Order) Location: None Selected Ordered By: Nkechi Casillas [place] [facility] [place] Jorge Alex MD [Primary Care Provider] - 05/18/21 9:45 am (FOLLOW UP APPOINTMENT SCHEDULED FOR May AT 9:45) Juan Quarles MD [Physician] - 05/28/21 9:45 am (FOLLOW UP APPOINTMENT SCHEDULED FOR TuesdayMay AT 9:45.) Discharge Diet: Usual diet Discharge Activity: Limit activity as instructed, Oxygen as instructed and Cpap/Bipap as instructed Patient Instructions: Levofloxacin (By mouth), Sleep Apnea (GEN), Opioid Safety, Pneumonia Stoplight, Pneumonia - Viral Discharge Attestations Time Spent in Discharge Care*: less than 30 min Quality Metrics Clinical Quality Measures During this hospital stay, did patient experience: None Coding Level of Care Code Acute Chg FW DC note Diagnoses Community acquired pneumonia J18.9 Down syndrome Q90.9 Epigastric pain R10.13
== END 2021-05-13 16:27 | disposition home or self-care (01) | DRG 193 ==
LOC: ER 13:26 → MEDSURG 14:12
PROVIDERS: Admitting Provider Internal Medicine; Emergency Provider Family Medicine; PCP Family Medicine; Visit Provider Internal Medicine
DX: J18.9 Pneumonia, unspecified organism (principal); J96.22 Acute and chronic respiratory failure with hypercapnia; J96.21 Acute and chronic respiratory failure with hypoxia; E66.2 Morbid (severe) obesity with alveolar hypoventilation; I50.32 Chronic diastolic (congestive) heart failure; E87.3 Alkalosis; Q90.9 Down syndrome, unspecified; Z68.31 Body mass index [BMI] 31.0-31.9, adult; I35.8 Other nonrheumatic aortic valve disorders; J45.909 Unspecified asthma, uncomplicated; Z87.01 Personal history of pneumonia (recurrent); E83.52 Hypercalcemia; I27.20 Pulmonary hypertension, unspecified; Z99.81 Dependence on supplemental oxygen; Z99.89 Dependence on other enabling machines and devices
CPT/HCPCS: 36415; 36600; 51702; 71045; 71275; 80048; 80051; 80053; 81001; 82330; 82803; 82805; 83605; 83690; 83735; 84145; 84484; 85025; 85378; 86403; 87040; 87426; 87449; 87635; 87641; 93005; 94640; 94660; 96365; 96367; 96372; 96375; 99291; J0692; J1650; J1956; J2405; J2543; Q9967

== ENCOUNTER → 2021-07-15 08:43 | Outpatient (BNVA) | payer MEDICARE, MEDICAID, SELFPAY | PROVIDERS: PCP Family Medicine; Visit Provider Internal Medicine Critical Care Medicine | DX: Z01.812 Encounter for preprocedural laboratory examination (principal); Z20.822 Contact with and (suspected) exposure to COVID-19 | CPT/HCPCS: 87635 ==

== ENCOUNTER → 2021-08-28 12:28 | Outpatient (BNVA) | payer MEDICARE, MEDICAID, SELFPAY | PROVIDERS: PCP Family Medicine; Visit Provider Internal Medicine Critical Care Medicine | DX: Z01.812 Encounter for preprocedural laboratory examination (principal); Z20.822 Contact with and (suspected) exposure to COVID-19 | CPT/HCPCS: 87635 ==

== ENCOUNTER 2022-11-03 08:42 | Inpatient (IN) | payer MEDICARE, MEDICAID, SELFPAY ==
[2022-11-03] VITALS (26 sets, daily range): BP systolic 81–147; BP diastolic 48–92; PULSE 83–111; RESP 14–26; O2SAT 79–100
--- NOTE | 2022-11-03 09:14 | XR_ITS ---
WS: [id number] Portable AP upright chest, 11/03/2022 Clinical Data: Chest pain Comparison: Portable chest, 05/10/2021 Findings: There are diffuse linear opacities in both lungs unchanged. No nodules or masses are seen. The heart is enlarged. There is no pneumothorax. There is a possible right pleural effusion or right pleural reaction. The aortic arch and descending thoracic aorta show tortuosity. XR/XR chest 1V portable [id number] Impression: Diffuse linear pulmonary opacities unchanged which may represent chronic inters titial lung disease.
--- NOTE | 2022-11-03 09:24 | W.ED.CHESTPA ---
HPI - Chest Pain General: Chief Complaint: Chest Pain Stated Complaint: Chest Pain Time Seen by Provider: 11/03/22 09:01 Source: patient Mode of arrival: EMS History of Present Illness: 37-year-old female presents emergency room via EMS complaining of chest pain and shortness of breath. She refers pain to the left side of the chest. She is unable to really rates her pain. She has a history of Down syndrome. She is super morbidly obese. She has no known history of coronary artery disease but does have a history of obesity hypoventilation syndrome. She is on Lasix 40 mg daily as well as spironolactone 25 mg daily. She is requiring oxygen at this time. She does not normally require oxygen and in the ER she is satting in the low 90s on 6 L/min. MD complaint: chest pain Onset (ago): hour(s) Timing of current episode: constant Prior episodes: Yes Onset: during rest Pain location: left chest Pain radiation: none Severity: mild Relieving factors: nothing Exacerbating factors: nothing Associated symptoms: Reports dyspnea and leg edema; Deny abdominal pain, diaphoresis, fever(s), nausea, palpitations, syncope or vomiting Treatment prior to arrival: none Review of Systems Const: Denies: fever(s), chills, fatigue, malaise or diaphoresis ENMT: Denies: throat pain, ear or mastoid pain, nasal discharge or nasal congestion Card: Reports: chest pain; Denies: palpitations, irregular heart rhythm, edema, swelling of feet/ankles or syncope Resp: Reports: dyspnea, non-productive cough and wheezing GI: Denies: abdominal pain, nausea or vomiting : Denies: flank pain, difficulty voiding, dysuria, urinary frequency or urinary urgency Skin/Breast: Denies: rash or pruritus PFSH ED PFSH: Medical History (Updated 11/03/22 @ 13:43 by Roc Rodriguez DO) Abnormal TSH Acute bronchitis Allergic rhinitis Aortic valve sclerosis Asthma BMI 60.0-69.9, adult Central sleep apnea Chronic diastolic CHF (congestive heart failure) Chronic osteoarthritis Club foot of both lower extremities Congestive heart failure Dietary counseling and surveillance Down syndrome Edema Encounter for health education Epigastric pain Excessive sleepiness Hyperglycemia Knee deformity, congenital Macrocytosis Morbid obesity Pulmonary hypertension Screening for diabetes mellitus Screening, lipid Sleep apnea Vitamin B 12 deficiency Weight gain Surgical History History of foot surgery Family History Denies family history of Dementia Social History Smoking and tobacco status: never smoked Alcohol intake: never Household members: family Housing: House Physical Exam HENMT: COMMON NORMALS: normocephalic, atraumatic and hearing grossly normal bilaterally HEAD & SCALP: normocephalic and atraumatic Resp: EFFORT & INSPECTION: Yes uses accessory muscles AUSCULTATION: crackles, wheezes and diminished lung sounds Cardio: COMMON NORMALS: regular rate, regular rhythm and No murmurs present (Cardio) RATE: regular rate RHYTHM: regular rhythm GI: COMMON NORMALS: Soft to palpation and No hepatosplenomegaly present AUSCULTATION: Yes normoactive bowel sounds PALPATION: Yes Soft to palpation, No Tenderness to palpation present (GI), No Guarding due to palpation present (GI) and Yes No hepatosplenomegaly present Extremity: COMMON NORMALS: normal to inspection, capillary refill normal and no calf tenderness GENERAL: Yes edema (Right slightly greater than left per the mother constantly swollen) Skin: COMMON NORMALS: no rashes or lesions noted GENERAL SKIN EXAM: no rashes or lesions noted Course Vital Signs: Vital signs: Vital Signs Pulse Rate 93 11/03/22 12:00 Respiratory Rate 14 11/03/22 10:31 Blood Pressure 125/64 11/03/22 11:00 Pulse Oximetry 98 11/03/22 12:00 Oxygen Delivery Me thod BiPAP 11/03/22 11:00 Oxygen Flow Rate 6 11/03/22 08:58 Fraction of Inspir ed Oxygen 45 11/03/22 09:42 MDM - Chest Pain Medical Decision Making Patient has obesity hypoventilation syndrome. Suspect she also has Underlying pneumonia and mild fluid overload. CTA of the chest shows pulmonary emboli with right heart strain. She has no known underlying heart conditions. Will admit Dr. White has written for heparin anticoagulation we have already started her on antibiotics and given her 60 Lasix Medical Records I reviewed the patient's medical records. Lab Data I reviewed the patient's lab results. 11/03/22 09:41 11/03/22 09:41 Radiology Impressions Chest X-Ray 11/03/22 09:14 Impression: Diffuse linear pulmonary opacities unchanged which may represent chronic interstitial lung disease. Chest CTA 11/03/22 11:01 IMPRESSION: 1. Subsegmental emboli LEFT upper and RIGHT lower lobes. Study is compromised by body habitus. There may be additional emboli which are obscured. 2. Mild RIGHT heart strain. 3. Scattered bilateral multifocal opacifications and atelectasis. Findings consistent with pneumonitis. Recommend follow-up to ensure resolution of the opacifications. 4. No effusions. Laboratory Results WBC 8.6 10^3/uL (4.0-10.0) 11/03/22 09:41 RBC 3.67 10^6/uL (4.1-5.3) L 11/03/22 09:41 Hgb 10.7 g/dL (11.5-15.3) L 11/03/22 09:41 Hct 35.2 % (37.0-47.0) L 11/03/22 09:41 MCV 95.9 fl (81-99) 11/03/22 09:41 MCH 29.2 pg (28.0-34.0) 11/03/22 09:41 MCHC 30.4 g/dL (30.0-36.0) 11/03/22 09:41 RDW 17.2 % (12.1-15.1) H 11/03/22 09:41 Plt Count 338 10^3/cmm (130-400) 11/03/22 09:41 MPV 9.6 fL (7.4-10.4) 11/03/22 09:41 Neut % (Auto) 76.7 % 11/03/22 09:41 Lymph % (Auto) 12.3 % 11/03/22 09:41 [place] % (Auto) 8.5 % 11/03/22 09:41 Eos % (Auto) 0.3 % 11/03/22 09:41 Baso % (Auto) 1.4 % 11/03/22 09:41 Neut # (Auto) 6.61 10^3/uL (1.8-7.7) 11/03/22 09:41 Lymph # (Auto) 1.1 10^3/uL (0.8-4.8) 11/03/22 09:41 [place] # (Auto) 0.7 10^3/uL (0.2-0.9) 11/03/22 09:41 Eos # (Auto) 0.0 10^3/uL (0.0-0.8) 11/03/22 09:41 Baso # (Auto) 0.1 10^3/uL (0.0-0.1) 11/03/22 09:41 Nucleated RBC % (auto) 0.3 % 11/03/22 09:41 Nucleated RBCs # 0.0 /100WBC 11/03/22 09:41 Specimen Type Arterial 11/03/22 09:21 Sample Site Radial, left 11/03/22 09:21 ABG pH 7.38 (7.35-7.45) 11/03/22 09:21 ABG pCO2 67.2 mmHg (35-45) H* 11/03/22 09:21 ABG pO2 50.7 mmHg (80.0-100.0) L 11/03/22 09:21 ABG HCO3 39.3 mmol/L (22-26) H 11/03/22 09:21 ABG O2 Saturation 85.6 11/03/22 09:21 ABG Base Excess 11.7 mmol/L (-2.0-2.0) H 11/03/22 09:21 Kavon Test Pos 11/03/22 09:21 A-a O2 Gradient 2.4 mmHg (5-10) L 11/03/22 09:21 Hematocrit 34.2 % (37-47) L 11/03/22 09:21 Hgb O2 Saturation 83.7 % (95-100) L 11/03/22 09:21 Carboxyhemoglobin 1.9 %THgb (0.4-20.1) 11/03/22 09:21 Methemoglobin 0.4 % (0.4-1.5) 11/03/22 09:21 Total Hemoglobin 11.2 g/dL (12-16) L 11/03/22 09:21 Sodium 141.0 mmol/L (131-143) 11/03/22 09:21 Potassium 3.6 mmol/L (3.5-5.0) 11/03/22 09:21 Glucose 105.0 mg/dL (70-115) 11/03/22 09:21 Ionized Calcium 1.0 mmol/L (1.1-1.4) L 11/03/22 09:21 O2 Delivery Device Nc 11/03/22 09:21 O2 Liters/Min 6.0 % 11/03/22 09:21 Consumer Loan Processor ID Linda 11/03/22 09:21 Sodium 138 mmol/L (136-145) 11/03/22 09:41 Potassium 3.7 mmol/L (3.5-5.1) 11/03/22 09:41 Chloride 92 mmol/L (98-107) L 11/03/22 09:41 Carbon Dioxide 35 mmol/L (22-29) H 11/03/22 09:41 Anion Gap 14.7 (5-19) 11/03/22 09:41 BUN 10 mg/dL (6-20) 11/03/22 09:41 Creatinine 0.8 mg/dL (0.5-0.9) 11/03/22 09:41 GFR Calculation 81.6 mL/min (90-130) L 11/03/22 09:41 Glucose 102 mg/dL (65-115) 11/03/22 09:41 Calculated Osmolality 285 mOsm/kg (285-295) 11/03/22 09:41 Calcium 7.7 mg/dL (8.5-10.5) L 11/03/22 09:41 Total Bilirubin 0.5 mg/dL (0.15-1.2) 11/03/22 09:41 AST 7 U/L (0-32) 11/03/22 09:41 ALT 11 U/L (0-33) 11/03/22 09:41 Alkaline Phosphatase 87 U/L (35-105) 11/03/22 09:41 Troponin T Baseline 10 ng/L (0-10) 11/03/22 09:41 Troponin T 120 Minute 12.46 ng/L (0-10) H 11/03/22 12:11 Delta Troponin T 2.46 ABS# (0-10) 11/03/22 12:11 C-Reactive Protein 89.1 mg/L (0.0-4.9) H 11/03/22 09:41 NT-Pro-B Natriuret Pep 164 pg/mL (0-125) H 11/03/22 09:41 Total Protein 7.7 g/dL (6.6-8.7) 11/03/22 09:41 Albumin 3.6 g/dL (3.5-5.2) 11/03/22 09:41 Globulin 4.1 g/dL (1.3-4.6) 11/03/22 09:41 Discharge Plan Discharge Patient Disposition: Admitted As Inpatient Admit Provider: Israel Nuno Clinical Impression: Pulmonary emboli, Acute respiratory failure with hypoxia and hypercapnia, Down syndrome, Community acquired pneumonia Condition: Stable Prescriptions: No Action albuterol sulfate 90 mcg/actuation HFA aerosol inhaler 2 puff inhalation Q6H PRN (Reason: Shortness Of Breath) furosemide 40 mg tablet 40 mg PO DAILY albuterol sulfate 2.5 mg /3 mL (0.083 %) solution for nebulization 2.5 mg inhalation QID PRN (Reason: Wheezing) acetaminophen 500 mg tablet 500 mg PO QID PRN (Reason: Pain) Rx Instructions: 1-2 tabs every 6 hours as needed spironolactone 25 mg tablet 25 mg PO DAILY pantoprazole 40 mg tablet,delayed release (DR/EC) 40 mg PO DAILY montelukast 10 mg tablet 10 mg PO BEDTIME Advair Diskus 500-50 mcg/dose Blister With Device 1 inh INHALATION BID Referrals: Jorge Alex MD [Primary Care Provider] - Coding Level of Care Code ED [employer] M[employer]ainer for [facility] [place]
--- NOTE | 2022-11-03 09:29 | ECG_ITS ---
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 Measurements Intervals [place] Rate: 117 P: -5 CA: 155 QRS: 67 QRSD: 81 T: 32 QT: 305 QTc: 427 Interpretive Statements SINUS TACHYCARDIA LOW QRS VOLTAGE IN PRECORDIAL LEADS [QRS DEFLECTION < 1.0 mV IN CHEST LEADS] ABNORMAL RHYTHM ECG Compared to ECG 05/09/2021 16:48:30 Sinus rhythm no longer present Myocardial infarct finding no longer present Electronically Signed On 11-03-2022 14:47:31 CDT by Michael Maier M.D. [email or web address]
[2022-11-03 09:32] LABS: ABG PH Result 7.38 (7.35-7.45); Alveolar-Arterial Oxygen Gradi 2.4 mmHg (5-10); Arterial Blood Gas Hematocrit 34.2 % (37-47); Base Excess ABG 11.7 mmol/L (-2.0-2.0); Blood Gas Allen Test Pos; Blood Gas Operator Identificat WALCI; Blood Gas Sample Site Radial, left; Blood Gas Sample Type Arterial; Carboxyhemoglobin 1.9 %THgb (0.4-20.1); HCO3 ABG 39.3 mmol/L (22-26); HGB O2 Sat 83.7 % (95-100); Methemoglobin 0.4 % (0.4-1.5); Oxygen Device NC; Oxygen Saturation ABG 85.6; PO2 ABG 50.7 mmHg (80.0-100.0); Potassium Level - ABG 3.6 mmol/L (3.5-5.0); Total Hemoglobin 11.2 g/dL (12-16)
[2022-11-03 09:33] LABS: ABG PCO2 67.2 mmHg (35-45)
[2022-11-03] MEDS: ipratropium-albuterol 3 mL Neb INHALATION ×2 (09:45→20:09)
[2022-11-03 10:01] LABS: Basophils # 0.1 10^3/uL (0.0-0.1); Basophils % 1.4 %; Eosinophils % 0.3 %; Hematocrit 35.2 % (37.0-47.0); Hemoglobin 10.7 g/dL (11.5-15.3); Lymphocytes # 1.1 10^3/uL (0.8-4.8); Lymphocytes % 12.3 %; Mean Corpuscular HGB Conc 30.4 g/dL (30.0-36.0); Mean Corpuscular Hemoglobin 29.2 pg (28.0-34.0); Mean Corpuscular Volume 95.9 fl (81-99); Mean Platelet Volume 9.6 fL (7.4-10.4); Monocytes # 0.7 10^3/uL (0.2-0.9); Monocytes % 8.5 %; Neutrophils # 6.61 10^3/uL (1.8-7.7); Neutrophils % 76.7 %; Nucleated Red Blood Cells % 0.3 %; Platelet Count 338 10^3/cmm (130-400); Red Blood Count 3.67 10^6/uL (4.1-5.3); Red Cell Distribution Width 17.2 % (12.1-15.1); White Blood Count 8.6 10^3/uL (4.0-10.0)
[2022-11-03 10:37] LABS: Alanine Aminotransferase 11 U/L (0-33); Albumin Level 3.6 g/dL (3.5-5.2); Alkaline Phosphatase 87 U/L (35-105); Anion Gap 14.7 (5-19); Aspartate Amino Transferase 7 U/L (0-32); Blood Urea Nitrogen 10 mg/dL (6-20); C Reactive Protein 89.1 mg/L (0.0-4.9); Calcium 7.7 mg/dL (8.5-10.5); Carbon Dioxide 35 mmol/L (22-29); Chloride 92 mmol/L (98-107); Globulin 4.1 g/dL (1.3-4.6); Glomerular Filtration Rate 81.6 mL/min (90-130); Glucose 102 mg/dL (65-115); NT Pro B Type Natriuretic Pept 164 pg/mL (0-125); Osmolality Calculated 285 mOsm/kg (285-295); Potassium 3.7 mmol/L (3.5-5.1); Sodium 138 mmol/L (136-145); Total Bilirubin 0.5 mg/dL (0.15-1.2); Total Protein 7.7 g/dL (6.6-8.7)
--- NOTE | 2022-11-03 11:01 | CT_ITS ---
WS: [id number] CT CHEST ANGIOGRAPHY WITH REFORMATS HISTORY: chest pain hypoxia TECHNIQUE: Contiguous axial images are obtained through the chest during arterial injection of intrav enous contrast. Images are reconstructed to evaluate the pulmonary arteries. MIP imaging also reviewe d. All CT scans at [facility] use at least one of these dose optimization techniques: automat ed exposure control; mA and/or kV adjustment per patient size (includes targeted exams where dose is matched to clinical indication); or iterative reconstruction. CONTRAST: Omnipaque 350; 100 mL IV. DLP: 718.93 mGy.cm COMPARISON: 05/10/2021 Quality of this examination is suboptimal due to patient's body habitus. No large central pulmonary e mbolism is identified. There are filling defects consistent with pulmonary emboli in the segmental br anches of the LEFT lower lobe and RIGHT upper lobe. There may be additional emboli not well visualize d due to technique and body habitus. Pulmonary artery is not enlarged. Very mild atherosclerosis aort a. There is RIGHT heart strain. Flattening of the interventricular septum. Hazy attenuation and motion artifact throughout both lungs. Areas of atelectasis and scattered opacif ications. Very small RIGHT pleural effusion. No adenopathy. Hepatic steatosis. Thoracolumbar scoliosis. CT/CT angio chest PE protcl [id number] IMPRESSION: 1. Subsegmental emboli LEFT upper and RIGHT lower lobes. Study is compromised by body habitus. There may be additional emboli which are obscured. 2. Mild RIGHT heart strain. 3. Scattered bilateral multifocal opacifications and atelectasis. Findings con sistent with pneumonitis. Recommend follow-up to ensure resolution of the opaci fications. 4. No effusions.
[2022-11-03 11:31] LABS: Troponin(5th) Baseline 10 ng/L (0-10)
[2022-11-03] MEDS: FUROsemide 10 mg/mL SDV 10mL 60 MG IVP (11:44)
[2022-11-03] MEDS: iohexol 350 mg/mL 500 mL Btl (per mL) IV (11:56)
[2022-11-03 12:35] LABS: Troponin 5 2HR 12.46 ng/L (0-10)
[2022-11-03 12:36] LABS: Troponin 5 2HR Delta 2.46 ABS# (0-10)
--- NOTE | 2022-11-03 13:16 | PM.HP ---
Providers/Chief Complaint Admitting Physician: Israel Nuno MD Primary Care Provider: Jorge Alex MD Chief Complaint: Chest Pain History of Present Illness Velma Valentino is a 37 year old female with trisomy 21 who comes into the emergency department with shortness of breath. Mother noted she had been short of breath and coughing some since early this morning. She may have had symptoms even yesterday. She has trouble relating some of her symptoms secondary to her Down syndrome. She also is having some chest discomfort. She denies any chest discomfort now, and feels better on BiPAP. No recent fevers. Right leg has been swollen greater than left. No vomiting. No blood in stools, black or tarry stool. No hematemesis. No prior history of pulmonary embolism. Does have history of hypercarbic respiratory failure. Review of Systems General: Reports: 10 or more systems reviewed and unremarkable except in HPI and below Card: Reports: chest pain Resp: Reports: dyspnea and non-productive cough; Denies: hemoptysis GI: Denies: hematochezia or melena Medications/Allergies Home Medications Medication Instructions Recorded Confirmed Last Taken Type acetaminophen 500 mg tablet 500 mg PO QID PRN Pain 08/21/20 11/03/22 08/21/20 History albuterol sulfate 2.5 mg/3 mL 2.5 mg inhalation QID PRN Wheezing 08/21/20 11/03/22 08/21/20 History (0.083 %) solution for nebulization furosemide 40 mg tablet 40 mg PO DAILY 08/21/20 11/03/22 11/03/22 History montelukast 10 mg tablet 10 mg PO BEDTIME 08/21/20 11/03/22 11/02/22 History pantoprazole 40 mg tablet,delayed 40 mg PO DAILY 08/21/20 11/03/22 11/03/22 History release spironolactone 25 mg tablet 25 mg PO DAILY 08/21/20 11/03/22 11/03/22 History albuterol sulfate 90 mcg/actuation 2 puff inhalation Q6H PRN 05/28/21 11/03/22 Unknown History aerosol inhaler Shortness Of Breath fluticasone 500 mcg-salmeterol 50 1 inh inhalation BID 11/03/22 11/03/22 11/02/22 History mcg/dose blistr powdr for inhalation (Advair Diskus) Allergies Allergy/AdvReac Type Severity Reaction Status Date / Time sulfamethoxazole Allergy ALGY-Rash Verified 05/28/21 15:16 [From ] theophylline Allergy ALGY-Rash Verified 05/28/21 15:16 trimethoprim [From ] Allergy ALGY-Rash Verified 05/28/21 15:16 PFSH Acute PFSH: Medical History (Updated 11/03/22 @ 13:30 by Israel Nuno MD) Abnormal TSH Acute bronchitis Allergic rhinitis Aortic valve sclerosis Asthma BMI 60.0-69.9, adult Central sleep apnea Chronic diastolic CHF (congestive heart failure) Chronic osteoarthritis Club foot of both lower extremities Congestive heart failure Dietary counseling and surveillance Down syndrome Edema Encounter for health education Epigastric pain Excessive sleepiness Hyperglycemia Knee deformity, congenital Macrocytosis Morbid obesity Pulmonary hypertension Screening for diabetes mellitus Screening, lipid Sleep apnea Vitamin B 12 deficiency Weight gain Surgical History History of foot surgery Family History Denies family history of Dementia Social History Smoking and tobacco status: never smoked Alcohol intake: never Household members: family Housing: House Vitals/I&O/Wt Last Vital Signs Pulse 93 11/03/22 12:00 Resp 14 11/03/22 10:31 BP 125/64 11/03/22 11:00 Pulse Ox 98 11/03/22 12:00 O2 Del Method BiPAP 11/03/22 11:00 O2 Flow Rate 6 11/03/22 08:58 FiO2 45 11/03/22 09:42 Physical Exam Narrative: General exam, white female, mild respiratory distress, on BiPAP HEENT: Atraumatic normocephalic. Pupils equally round. On BiPAP. This was not removed Neck is obese supple without obvious mass Cardiovascular slightly tachycardic. No audible murmur with tachycardia Lungs diminished breath sounds bilaterally. No wheezes or crackles Abdomen is soft, positive bowel sounds. Difficult to determine if any organomegaly is present. Nontender. exam demonstrates Faulkner Extremities right lower extremity with significant edema. Very slight erythema. Pulses intact. Left with no significant edema. Cap refill brisk. Skin see findings above Neuro no obvious focal deficits. Data 11/03/22 09:41 11/03/22 09:41 Other Labs: Chest x-ray which I reviewed demonstrates no infiltrate, poor penetration CT scan which I reviewed demonstrates pulmonary emboli. Radiologist has read possible pneumonitis as well as mild right heart strain EKG initially demonstrates sinus tachycardia, normal axis, small Q in [address] No [address] elevation is noted. ABG demonstrates pH 7.38, PCO2 of 67, PO2 of 50 on 6 L LFTs are normal Calcium 7.7 Albumin 3.6 Troponin 10 with repeat of 12 CRP 89 A&P Assessment and plan (1) Pulmonary emboli: Patient presents with respiratory failure, and pulmonary emboli are noted on CT scan with mild right heart strain. Heparin drip will be used. Monitor for any bleeding. Note that the patient is anemic. Risks and benefits of anticoagulation outlined with the mother. Check venous duplex. I suspect she has an extensive right lower extremity DVT. Check echocardiogram for heart function, right heart strain Wean oxygen as tolerated. Note that she is on 5 L chronically for obesity hypoventilation. (2) Acute respiratory failure with hypoxia and hypercapnia: Patient appears to have acute respiratory failure with hypoxemia superimposed on chronic respiratory failure with hypercapnia. Continue BiPAP for support currently. Note that pH was normal on check. Wean off as tolerated Avoid sedating medications Note that she wears CPAP at night, therefore will need BiPAP whenever sleeping even if weaned off during the day. Associated with obesity hypoventilation, with concern of asthma in the past Continue budesonide twice daily DuoNeb every 6 hours as needed currently. Telemetry Note that she received Lasix in the emergency department. We will evaluate for this again tomorrow as she is on Lasix and spironolactone at home. (3) Anemia: Anemia noted. No bleeding per mother Initiate Protonix Follow hemoglobins closely (4) Community acquired pneumonia: Question of pneumonitis on chest x-ray Obtain sputum culture if able Initiate Levaquin 750 mg IV every 24 hours. Considering her pulmonary emboli noted this could very well be atelectasis. (5) Down syndrome: Mother's advocate. Patient's speech is good but understanding of her medical condition is not complete. Plan Other medical problems as outlined in past medical history Attestations Medical Necessity Statement*: Will need greater than 2 midnight stay for evaluation and treatment of pulmonary emboli with right heart strain Coding Level of Care Code Critical Care >/= 30 minutes Critical care time (in minutes): 61 The high probability of a clinically significant, sudden or life threatening deterioration, as referenced in this documentation, required my full and direct attention, intervention and personal management. The critical care time shown is in addition to time spent performing any reported separately billable procedures and includes the following: [x] Data and vital sign review and interpretation [x] Patient assessment, examination and intervention [x] Medication orders and management [x] Patient/Family updates as able [x] Care Coordination and Documentation. Diagnoses Pulmonary emboli I26.99 Acute respiratory failure with hypoxia and hypercapnia J96.01; J96.02 Anemia D64.9 Community acquired pneumonia J18.9 Down syndrome Q90.9 Time Spent (min) 61
--- NOTE | 2022-11-03 13:18 | USCV_ITS ---
Velma Valentino Age: 37 Gender: F : 1985 Exam Date: 11/03/2022 16:33 Ordering Phys: Israel Nuno MD Technologist: Phillip Argueta Exam Location: [facility] [place]_ Indication: PE BP: 125 / 64 HR: 107 Rhythm: Sinus Technical Quality: Good MEASUREMENTS (Male / Female) Normal Values 2D ECHO LVOT Diameter 2.0 cm LV Ejection Fraction MOD 2C 66.5 % LV Ejection Fraction 2C AL 66.9 % LA Diameter 3.1 cm LA Width 2.9 cm LA Height 4.5 cm RA Width 3.1 cm RA Height 3.6 cm Aorta at Sinotubular Diameter 1.6 cm IVC Diameter 2.0 cm M-MODE Aortic Annulus Diameter 2.0 cm LA Ao Ratio MM 1.5 DOPPLER AV Peak Velocity 141.0 cm/s LVOT Peak Velocity 118.0 cm/s AV Area Cont Eq vti 2.9 cm squared AV Area Cont Eq pk 2.7 cm squared MV Peak Velocity 151.0 cm/s MV Area PHT 5.4 cm squared Mitral E to A Ratio 0.6 MV E' Velocity 59.0 cm/s Right Atrial Pressure 3.0 mmHg PV Peak Velocity 149.0 cm/s RV Acceleration Time 0.1 s RV Ejection Time 0.2 s RV AcT/ET 0.4 FINDINGS Left Ventricle Normal left ventricular size and systolic function, EF 63 %. No regional wall motion abnormalities. Right Ventricle Right ventricle not well visualized. Right Atrium Right atrium not well visualized. Left Atrium Possibly normal size Mitral Valve Not visualized normal Aortic Valve No gross abnormalities noted Tricuspid Valve Tricuspid valve not well visualized. Pulmonic Valve Pulmonic valve not well visualized. Pericardium No pericardial effusion. Aorta Normal aortic annulus size. IVC Inferior vena cava not visualized. CONCLUSIONS Normal left ventricular size and systolic function, EF 63 %. No regional wall motion abnormalities. The right atrium and right relative do not visualized well. Left atrium appears to be of normal size. Mitral and aortic valve morphology appear to be within normal limits. There is no pericardial effusion. Technically very difficult study because of the poor ultrasonic window (Echo contrast - Optison was used to delineate the endocardium and to estimate the LV ejection fraction) Dr Jones Delgadillo MD [facility] (Electronically Signed) Final Date: 03 November 2022 17:59 S
--- NOTE | 2022-11-03 13:18 | USCV_ITS ---
Velma Valentino Age: 37 Gender: F : 1985 Exam Date: 11/03/2022 14:32 Ordering Phys: Israel Nuno MD Technologist: CT Exam Location: [facility] [place]_ Indication: pe PROCEDURES: The venous duplex Doppler examination of both lower extremities was performed in the standard fashion. The following venous structures were evaluated: common femoral vein, profunda vein, proximal portion of the greater saphenous vein, superficial femoral vein, and the popliteal vein. In addition, the posterior tibial and peroneal trunk were evaluated. FINDINGS: Normal 2-D Doppler and augmentation and compressibility throughout the lower extremity venous structures. Additional imaging through the proximal calf veins also reveals no thrombus. Limited evaluation of the greater saphenous vein is patent with no thrombus. Thrombus noted in the right small saphenous vein. CONCLUSIONS No DVT bilateral lower extremities. Superficial thrombophlebitis right SSV. Dr. Kim King DO (Electronically Signed) Final Date: 04 November 2022 07:39 S
[2022-11-03] MEDS: heparin drip 25,000 UNIT/500 ML PREMIX 36 UNIT IV (13:48)
[2022-11-03] MEDS: heparin 5,000 unit/mL INJ 1 mL IV ×2 (13:49→22:26)
--- NOTE | 2022-11-03 13:58 | ECG_ITS ---
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 Measurements Intervals [place] Rate: 106 P: -7 MI: 159 QRS: 61 QRSD: 77 T: 41 QT: 331 QTc: 440 Interpretive Statements SINUS TACHYCARDIA LOW QRS VOLTAGE IN PRECORDIAL LEADS [QRS DEFLECTION < 1.0 mV IN CHEST LEADS] ABNORMAL RHYTHM ECG Compared to ECG 11/03/2022 09:29:02 No significant changes Electronically Signed On 11-03-2022 14:49:54 CDT by Michael Maier M.D. [id number]
[2022-11-03 14:18] LABS: Thyroid Stimulating Hormone 2.71 uIU/mL (0.27-4.20)
[2022-11-03] MEDS: levofloxacin-dextrose 5 % 750 MG/150 ML PREMIX 100 MG IV (15:54)
[2022-11-03 16:18] LABS: Troponin 5 6HR 7.72 ng/L (0-10)
[2022-11-03 16:23] LABS: Troponin 5 6HR Delta -2.28 ng/L (0-12)
--- NOTE | 2022-11-03 16:24 | PC.NURSE ---
Arrived from ED, AO x3 no c/o at this time
--- NOTE | 2022-11-03 17:01 | ECG_ITS ---
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 Measurements Intervals [place] Rate: 106 P: 20 FL: 145 QRS: 70 QRSD: 83 T: 52 QT: 332 QTc: 442 Interpretive Statements SINUS TACHYCARDIA LOW QRS VOLTAGE IN PRECORDIAL LEADS [QRS DEFLECTION < 1.0 mV IN CHEST LEADS] POSSIBLE ANTERIOR MYOCARDIAL INFARCTION , PROBABLY OLD [30 ms Q WAVE IN V3/V4, OR R < 0.2 mV IN V4] ABNORMAL RHYTHM ECG Compared to ECG 11/03/2022 13:58:50 Myocardial infarct finding now present Electronically Signed On 11-05-2022 22:10:02 CDT by Jones Delgadillo M.D. [id number]
[2022-11-03] MEDS: perflutren protein-a microsphr 0.22 mg/mL SDV 3 mL IV (17:26)
[2022-11-03] MEDS: budesonide 0.5 mg/2 mL Neb INHALATION (20:09)
[2022-11-03] MEDS: montelukast sodium 10 mg Tablet PO (20:31)
[2022-11-03 22:02] LABS: Partial Thromboplastin Time 26.5 SECONDS (23.9-36.7)
[2022-11-04] VITALS (28 sets, daily range): BP systolic 82–124; BP diastolic 38–84; PULSE 82–100; RESP 14–26; TEMP 37.7; O2SAT 87–100
[2022-11-04 04:39] LABS: Basophils # 0.1 10^3/uL (0.0-0.1); Basophils % 1.1 %; Eosinophils # 0.1 10^3/uL (0.0-0.8); Eosinophils % 1.1 %; Hematocrit 31.7 % (37.0-47.0); Hemoglobin 9.5 g/dL (11.5-15.3); Lymphocytes # 1.5 10^3/uL (0.8-4.8); Lymphocytes % 19.2 %; Mean Corpuscular Hemoglobin 28.5 pg (28.0-34.0); Mean Corpuscular Volume 95.2 fl (81-99); Mean Platelet Volume 9.4 fL (7.4-10.4); Monocytes # 0.7 10^3/uL (0.2-0.9); Monocytes % 8.5 %; Neutrophils # 5.45 10^3/uL (1.8-7.7); Neutrophils % 69.6 %; Nucleated Red Blood Cells % 0.4 %; Platelet Count 304 10^3/cmm (130-400); Red Blood Count 3.33 10^6/uL (4.1-5.3); Red Cell Distribution Width 17.1 % (12.1-15.1); White Blood Count 7.9 10^3/uL (4.0-10.0)
[2022-11-04 04:56] LABS: Alanine Aminotransferase 8 U/L (0-33); Alkaline Phosphatase 73 U/L (35-105); Anion Gap 10.6 (5-19); Aspartate Amino Transferase 6 U/L (0-32); Blood Urea Nitrogen 12 mg/dL (6-20); Calcium 7.5 mg/dL (8.5-10.5); Carbon Dioxide 38 mmol/L (22-29); Chloride 93 mmol/L (98-107); Globulin 3.7 g/dL (1.3-4.6); Glomerular Filtration Rate 81.6 mL/min (90-130); Glucose 101 mg/dL (65-115); Magnesium 2.1 mg/dL (1.7-2.3); Osmolality Calculated 286 mOsm/kg (285-295); Potassium 3.6 mmol/L (3.5-5.1); Sodium 138 mmol/L (136-145); Total Bilirubin 0.4 mg/dL (0.15-1.2); Total Protein 6.7 g/dL (6.6-8.7)
[2022-11-04 04:59] LABS: Partial Thromboplastin Time 79.8 SECONDS (23.9-36.7)
[2022-11-04] MEDS: heparin drip 25,000 UNIT/500 ML PREMIX 33 UNIT IV (06:46)
[2022-11-04] MEDS: ipratropium-albuterol 3 mL Neb INHALATION ×2 (08:14→20:54)
[2022-11-04] MEDS: budesonide 0.5 mg/2 mL Neb INHALATION ×2 (08:14→20:54)
--- NOTE | 2022-11-04 08:33 | P.PN_ITS ---
Subjective Subjective: Velma reports she is doing okay this morning. She denies any chest pain. She was on 6 L when I visited her this morning. Medications: Reviewed: Yes Vitals/I&O/Wt Last Vital Signs Temp 99.9 F H 11/04/22 08:00 Pulse 85 11/04/22 08:18 Resp 16 11/04/22 08:16 BP 107/60 11/04/22 08:00 Pulse Ox 95 11/04/22 08:16 O2 Del Method Nasal Cannula 11/04/22 08:16 O2 Flow Rate 5 11/04/22 08:16 FiO2 45 11/04/22 00:00 11/03/22 11/04/22 11/04/22 22:59 06:59 14:59 Intake Total 350 / 350 500 / 850 Output Total 1000 / 1000 600 / 1600 Balance -650 / -650 -100 / -750 Weight last 48 hrs Weight 133.81 kg Physical Exam Narrative: General exam, white female, no respiratory distress, currently on 6 L Neck is obese supple without obvious mass Cardiovascular slightly tachycardic. No audible murmur with tachycardia Lungs diminished breath sounds bilaterally. No wheezes or crackles Abdomen is soft, positive bowel sounds. Difficult to determine if any organomegaly is present. Nontender. exam demonstrates Faulkner Extremities right lower extremity with significant edema. Very slight erythema. Pulses intact. Left with no significant edema. Cap refill brisk. Skin see findings above Data 11/04/22 04:21 11/04/22 04:21 Other Labs: Superficial thrombophlebitis, right leg noted on venous duplex A&P Assessment and plan (1) Pulmonary emboli: Patient presents with respiratory failure, and pulmonary emboli are noted on CT scan with mild right heart strain. Heparin drip will be used. Continue to monitor for any bleeding. Note that the patient is anemic. Risks and benefits of anticoagulation outlined with the mother on admission. Continue serial INRs Venous duplex on the right demonstrates superficial thrombus Echocardiogram, preserved EF, poor quality. Wean oxygen as tolerated. Note that she is on 5 L chronically for obesity hypoventilation. If continues to improve consider conversion to oral anticoagulant tomorrow. (2) Acute respiratory failure with hypoxia and hypercapnia: Patient appears to have acute respiratory failure with hypoxemia superimposed on chronic respiratory failure with hypercapnia. Continue BiPAP for support currently. Note that pH was normal on check. She is now able to stay off BiPAP when awake Avoid sedating medications Note that she wears CPAP at night, therefore will need BiPAP whenever sleeping even if weaned off during the day. Associated with obesity hypoventilation, with concern of asthma in the past Continue budesonide twice daily DuoNeb every 6 hours as needed currently. Telemetry Note that she received Lasix in the emergency department. Likely reinitiate her Lasix tomorrow. (3) Anemia: Anemia noted. No bleeding per mother Continue Protonix Follow hemoglobins closely (4) Community acquired pneumonia: Question of pneumonitis on chest x-ray Obtain sputum culture if able Continue Levaquin 750 mg IV every 24 hours. Considering her pulmonary emboli noted this could very well be atelectasis. (5) Down syndrome: Mother's advocate. Patient's speech is good but understanding of her medical condition is not complete. Plan Other medical problems as outlined in past medical history Attestations Medical Necessity Statement*: Needs continued hospital stay secondary to pulmonary emboli, with heart strain and borderline hypotension in the ICU Critical Care Time: The high probability of a clinically significant, sudden or life threatening deterioration of the patient's [pulmonary, vascular, infectious disease] sys tem(s) required my full and direct attention, intervention and personal management. The critical care time is as shown. This time is in addition to time spent performing any reported procedures but includes the following: [x] Data and vital sign review and interpretation [x] Patient assessment, examination and intervention [x] Documentation [x] Medication orders and management Coding Level of Care Code Critical Care >/= 30 minutes Critical care time (in minutes): 36 The high probability of a clinically significant, sudden or life threatening deterioration, as referenced in this documentation, required my full and direct attention, intervention and personal management. The critical care time shown is in addition to time spent performing any reported separately billable procedures and includes the following: [x] Data and vital sign review and interpretation [x ] Patient assessment, examination and intervention [x] Medication orders and management [x] Patient/Family updates as able [x] Care Coordination and Documentation. Diagnoses Pulmonary emboli I26.99 Acute respiratory failure with hypoxia and hypercapnia J96.01; J96.02 Anemia D64.9 Community acquired pneumonia J18.9 Down syndrome Q90.9
[2022-11-04] MEDS: pantoprazole DR 40 mg Tablet PO (09:32)
[2022-11-04] MEDS: sennosides-docusate Tablet 1 TAB PO ×2 (09:32→18:44)
[2022-11-04 11:55] LABS: Partial Thromboplastin Time 42.6 SECONDS (23.9-36.7)
[2022-11-04] MEDS: levofloxacin-dextrose 5 % 750 MG/150 ML PREMIX 100 MG IV (15:55)
[2022-11-04 18:27] LABS: Partial Thromboplastin Time 36.5 SECONDS (23.9-36.7)
[2022-11-04] MEDS: heparin 5,000 unit/mL INJ 1 mL IV (19:23)
[2022-11-04] MEDS: montelukast sodium 10 mg Tablet PO (21:00)
[2022-11-04] MEDS: heparin drip 25,000 UNIT/500 ML PREMIX 42 UNIT IV (21:00)
[2022-11-04] MEDS: ondansetron 2 mg/ML SDV 2 mL 4 MG IVP (22:23)
[2022-11-04] MEDS: acetaminophen 325 mg Tablet 650 MG PO (23:28)
[2022-11-05] VITALS (26 sets, daily range): BP systolic 85–123; BP diastolic 46–74; PULSE 68–95; RESP 11–38; TEMP 36.6–37.3; O2SAT 94–100
[2022-11-05 01:46] LABS: Basophils # 0.1 10^3/uL (0.0-0.1); Basophils % 1.1 %; Eosinophils # 0.2 10^3/uL (0.0-0.8); Hematocrit 31.9 % (37.0-47.0); Hemoglobin 9.8 g/dL (11.5-15.3); Lymphocytes # 1.9 10^3/uL (0.8-4.8); Mean Corpuscular HGB Conc 30.7 g/dL (30.0-36.0); Mean Corpuscular Hemoglobin 29.3 pg (28.0-34.0); Mean Corpuscular Volume 95.2 fl (81-99); Monocytes # 0.7 10^3/uL (0.2-0.9); Monocytes % 7.7 %; Neutrophils % 68.5 %; Nucleated Red Blood Cells % 0 %; Platelet Count 275 10^3/cmm (130-400); Red Blood Count 3.35 10^6/uL (4.1-5.3); Red Cell Distribution Width 17.2 % (12.1-15.1); White Blood Count 9.5 10^3/uL (4.0-10.0)
[2022-11-05 02:05] LABS: Partial Thromboplastin Time 59.4 SECONDS (23.9-36.7)
[2022-11-05] MEDS: heparin drip 25,000 UNIT/500 ML PREMIX 42 UNIT IV (07:21)
[2022-11-05 07:47] LABS: Partial Thromboplastin Time 65.3 SECONDS (23.9-36.7)
[2022-11-05 07:58] LABS: Blood Urea Nitrogen 12 mg/dL (6-20); Calcium 7.8 mg/dL (8.5-10.5); Carbon Dioxide 29 mmol/L (22-29); Chloride 96 mmol/L (98-107); Glomerular Filtration Rate 95.2 mL/min (90-130); Glucose 88 mg/dL (65-115); Osmolality Calculated 277 mOsm/kg (285-295); Sodium 134 mmol/L (136-145)
[2022-11-05 08:01] LABS: Anion Gap 13.2 (5-19); Potassium 4.2 mmol/L (3.5-5.1)
--- NOTE | 2022-11-05 08:08 | PC.CHAP ---
Pastoral Care Encounter/Spiritual Assessment Type of Contact [] Declined sewing machine mechanic visit [] Patient/Family/Request visit [] Outpatient visit [] Follow-up visit [] Physician referral [] Code/Alert [x] Routine visit [] Staff referral [] Actively dying [] Patient sleeping [x] Family support [] [] Out of room [] Palliative care [] [] Receiving care in room [] Pre-surgical visit [] Trauma [] Long length of stay [] ICU visit [] Other: Relational/Emotional Strength x[x] Patient feels connected with others/family/visitors/staff [] Distress [] Loneliness/isolation [] Abandonment Spirituality of Patient [x] Person of Alexandra [] Attends Congregation of their Alexandra [x] Believes in Prayer [] Reads Bible or Nondenominational materials [] There are Spiritual issues to be addressed Attic Fans Mechanic Interventions x[] Prayer x[] Active listening x] Non-anxious presence [] Spiritual/emotional support [] Crisis/trauma care [] Spiritual counseling [] Bereavement support [] Provided bereavement packet [] Provided Bible/devotional materials [] Provided toy/stuffed animal, coloring book to patient or family member [] Provided Communion [] Anointing/[place] [] Salvation [x] Completed spiritual assessment [] Other: Impact on Illness or Injury [] Angry [] Fearful [] Anxious [] Often cries [] Exhaustion [] Unable to work [] Unable to attend amish [] Unable to walk/stand [] Unable to read [] Unable to drive [] Unable to eat/drink [] Unable to sleep [] Unable to be with family [] Patient intubated [] Other: Summary Time spent with patient 10 min
[2022-11-05] MEDS: pantoprazole DR 40 mg Tablet PO (08:22)
[2022-11-05] MEDS: sennosides-docusate Tablet 1 TAB PO ×2 (08:22→17:37)
[2022-11-05] MEDS: vancomycin 2,000 MG/400 ML PIGGYBACK 200 MG IV ×3 (08:22→23:58)
--- NOTE | 2022-11-05 10:04 | PM.PN ---
Subjective Subjective: Velma reports she is doing okay. Nursing relate no concerns overnight. She has been on BiPAP, and transitioning to nasal cannula. No chest pain. Some leg pain. Medications: Reviewed: Yes Vitals/I&O/Wt Last Vital Signs Temp 99.1 F 11/05/22 08:00 Pulse 68 11/05/22 08:00 Resp 11 L 11/05/22 08:00 BP 103/72 11/05/22 08:00 Pulse Ox 99 11/05/22 08:00 O2 Del Method Nasal Cannula 11/05/22 08:00 O2 Flow Rate 5 11/05/22 08:00 FiO2 45 11/05/22 08:00 11/04/22 11/05/22 11/05/22 22:59 06:59 14:59 Intake Total 709.7 / 949.7 450 / 1399.7 934.7 / 934.7 Output Total 400 / 400 Balance 309.7 / 549.7 450 / 999.7 934.7 / 934.7 Physical Exam Narrative: General exam, white female, no respiratory distress, currently on 5 L Neck is obese supple without obvious mass Cardiovascular regular rate and rhythm without murmur. Lungs diminished breath sounds bilaterally. No wheezes or crackles Abdomen is soft, positive bowel sounds. Difficult to determine if any organomegaly is present. Nontender. exam demonstrates Faulkner Extremities right lower extremity with significant edema. Very slight erythema. Some pain. Pulses intact. Left with no significant edema. Cap refill brisk. Skin see findings above Data 11/05/22 01:29 11/05/22 07:15 A&P Assessment and plan (1) Pulmonary emboli: Patient presents with respiratory failure, and pulmonary emboli are noted on CT scan with mild right heart strain. Used for proximal the first 48 hours. Changed to Eliquis currently 10 mg twice daily as patient is clinically stable. Continue to monitor for any bleeding. Note that the patient is anemic. Risks and benefits of anticoagulation outlined with the mother on admission. Repeat CBC tomorrow Venous duplex on the right demonstrates superficial thrombus Echocardiogram, preserved EF, poor quality. She is on her baseline oxygen amount May transfer out of ICU (2) Acute respiratory failure with hypoxia and hypercapnia: Patient appears to have acute respiratory failure with hypoxemia superimposed on chronic respiratory failure with hypercapnia. Continue BiPAP for support currently. Note that pH was normal on check. Significantly improved Avoid sedating medications Continue BiPAP whenever sleeping even if weaned off during the day. Associated with obesity hypoventilation, with concern of asthma in the past Continue budesonide twice daily DuoNeb every 6 hours as needed currently. Telemetry Note that she received Lasix in the emergency department. Reinitiate Lasix today and Aldactone (3) Anemia: Anemia noted. No bleeding per mother Continue Protonix Follow hemoglobins closely, daily (4) Community acquired pneumonia: Question of pneumonitis on chest x-ray Obtain sputum culture if able Continue Levaquin 750 mg IV every 24 hours. Considering her pulmonary emboli noted this could very well be atelectasis. Tmax 100.0. Add vancomycin. Check MRSA PCR. Pharmacy to arrange for vancomycin levels while on treatment, and will continue to follow renal function closely. (5) Down syndrome: Mother is advocate. Patient's speech is good but understanding of her medical condition is not complete. Plan Right lower extremity with some erythema, faint. Superficial DVT is noted there. With slight elevation in temperature, increased pain of leg will cover for cellulitis with vancomycin. Other medical problems as outlined in past medical history Attestations Medical Necessity Statement*: Needs continued hospitalization for IV antibiotics, transition to oral anticoagulation for PE with right heart strain. Diagnoses Pulmonary emboli I26.99 Acute respiratory failure with hypoxia and hypercapnia J96.01; J96.02 Anemia D64.9 Community acquired pneumonia J18.9 Down syndrome Q90.9 Time Spent (min) 25
[2022-11-05] MEDS: apixaban 5 mg Tablet 10 MG PO ×2 (10:35→20:44)
[2022-11-05] MEDS: FUROsemide 40 mg Tablet PO (10:36)
[2022-11-05] MEDS: spironolactone 25 mg Tablet PO (13:08)
[2022-11-05] MEDS: levofloxacin-dextrose 5 % 750 MG/150 ML PREMIX 100 MG IV (13:47)
--- NOTE | 2022-11-05 18:08 | PC.NURSE ---
reposition linen change done and seble care has small bm noted ... coccyx and groin red and escoriated cleaned and position off
[2022-11-05] MEDS: montelukast sodium 10 mg Tablet PO (20:43)
[2022-11-05] MEDS: acetaminophen 325 mg Tablet 650 MG PO (20:44)
[2022-11-06] VITALS (27 sets, daily range): BP systolic 84–132; BP diastolic 50–77; PULSE 74–98; RESP 9–25; TEMP 36.9; O2SAT 95–100
[2022-11-06] MEDS: ondansetron 2 mg/ML SDV 2 mL 4 MG IVP (01:19)
[2022-11-06 04:49] LABS: Basophils # 0.1 10^3/uL (0.0-0.1); Basophils % 1.5 %; Eosinophils # 0.2 10^3/uL (0.0-0.8); Hematocrit 34.6 % (37.0-47.0); Hemoglobin 10.2 g/dL (11.5-15.3); Lymphocytes # 1.4 10^3/uL (0.8-4.8); Lymphocytes % 18.7 %; Mean Corpuscular HGB Conc 29.5 g/dL (30.0-36.0); Mean Corpuscular Hemoglobin 28.5 pg (28.0-34.0); Mean Corpuscular Volume 96.6 fl (81-99); Mean Platelet Volume 10.2 fL (7.4-10.4); Monocytes # 0.7 10^3/uL (0.2-0.9); Monocytes % 9.9 %; Neutrophils # 4.86 10^3/uL (1.8-7.7); Neutrophils % 65.7 %; Nucleated Red Blood Cells % 0 %; Platelet Count 353 10^3/cmm (130-400); Red Blood Count 3.58 10^6/uL (4.1-5.3); Red Cell Distribution Width 16.8 % (12.1-15.1); White Blood Count 7.4 10^3/uL (4.0-10.0)
[2022-11-06 05:20] LABS: Alanine Aminotransferase 6 U/L (0-33); Albumin Level 2.8 g/dL (3.5-5.2); Alkaline Phosphatase 76 U/L (35-105); Aspartate Amino Transferase 7 U/L (0-32); Blood Urea Nitrogen 15 mg/dL (6-20); Calcium 8.4 mg/dL (8.5-10.5); Carbon Dioxide 33 mmol/L (22-29); Chloride 95 mmol/L (98-107); Globulin 3.9 g/dL (1.3-4.6); Glomerular Filtration Rate 81.6 mL/min (90-130); Glucose 95 mg/dL (65-115); Osmolality Calculated 283 mOsm/kg (285-295); Sodium 136 mmol/L (136-145); Total Bilirubin 0.3 mg/dL (0.15-1.2); Total Protein 6.7 g/dL (6.6-8.7)
[2022-11-06 05:26] LABS: Anion Gap 12.3 (5-19); Potassium 4.3 mmol/L (3.5-5.1)
[2022-11-06 07:51] LABS: Vancomycin Trough 36.8 ug/mL (10-15)
--- NOTE | 2022-11-06 07:58 | PC.NURSE ---
vanc trough elevated dose on hold for now
[2022-11-06] MEDS: budesonide 0.5 mg/2 mL Neb INHALATION ×2 (08:19→19:59)
[2022-11-06] MEDS: ipratropium-albuterol 3 mL Neb INHALATION ×3 (08:19→19:59)
[2022-11-06] MEDS: sennosides-docusate Tablet 1 TAB PO ×2 (08:49→18:20)
[2022-11-06] MEDS: pantoprazole DR 40 mg Tablet PO (08:50)
[2022-11-06] MEDS: spironolactone 25 mg Tablet PO (08:50)
[2022-11-06] MEDS: FUROsemide 40 mg Tablet PO (08:50)
[2022-11-06] MEDS: apixaban 5 mg Tablet 10 MG PO ×2 (08:51→20:36)
[2022-11-06 11:20] LABS: Folate Level 8.8 ng/mL (4.8-37.3)
[2022-11-06 11:22] LABS: Iron 27 ug/dL (37-145); NT Pro B Type Natriuretic Pept 36 pg/mL (0-125); Percent Saturation 10.8 % (20-50); Total Iron Binding Capacity 249 mcg/dl; Unsaturated Iron Binding 222 ug/dL (112-347); Vitamin B12 210 pg/mL (232-1245)
--- NOTE | 2022-11-06 13:23 | PC.SOCIAL ---
Imm update Imm updated with Hailey, patient's guardian. Copy of page 2 explained. Copy in chart initialed, dated and timed.
[2022-11-06] MEDS: levofloxacin-dextrose 5 % 750 MG/150 ML PREMIX 100 MG IV (14:41)
--- NOTE | 2022-11-06 16:47 | PM.PN ---
Subjective Subjective: Hospital course, labs appreciated. Seen in ICU today. Continues to remain on 5 L oxygen supplementation maintaining saturation over 90%. Patient's baseline oxygen supplementation 5 L as well. Patient is cheerful, able to have conversation. Denies any nausea, headache. Asking for her mother. Medications: Reviewed: Yes Vitals/I&O/Wt Last Vital Signs Temp 97.9 F 11/05/22 19:00 Pulse 82 11/06/22 14:33 Resp 20 H 11/06/22 14:28 BP 106/61 11/06/22 14:00 Pulse Ox 96 11/06/22 14:28 O2 Del Method Nasal Cannula 11/06/22 14:28 O2 Flow Rate 5 11/06/22 14:28 FiO2 45 11/06/22 14:00 11/06/22 11/06/22 11/06/22 06:59 14:59 22:59 Intake Total 400 / 3504.4 500 / 500 Output Total 1500 / 3300 3300 / 3300 Balance -1100 / 204.4 -2800 / -2800 Physical Exam Narrative: General exam, white female, no respiratory distress, currently on 5 L Neck is obese supple without obvious mass Cardiovascular regular rate and rhythm without murmur. Lungs diminished breath sounds bilaterally. No wheezes or crackles Abdomen is soft, positive bowel sounds. Difficult to determine if any organomegaly is present. Nontender. exam demonstrates Faulkner Extremities right lower extremity with significant edema. Very slight erythema. Some pain. Pulses intact. Left with no significant edema. Cap refill brisk. Skin see findings above Data 11/06/22 04:06 11/06/22 04:06 Micro: Microbiology 11/05/22 10:10 MRSA Culture - Final Nose A&P Assessment and plan (1) Pulmonary emboli: Patient presents with respiratory failure, and pulmonary emboli are noted on CT scan with mild right heart strain. Post 48 hours of heparin drip. Continue with Eliquis at PE dose. Echocardiogram shows normal EF, poor quality. Monitor CBC. Oxygen supplementation keeping saturation over 90%. Baseline at 5 L. (2) Acute respiratory failure with hypoxia and hypercapnia: DuoNebs every 6 hour, budesonide twice daily. Oxygen supplementation keeping saturation over 90%. BiPAP at home setting at nightly. Continue with home dose of spironolactone and Lasix. (3) Anemia: Anemia noted. No bleeding per mother Continue Protonix Follow hemoglobins closely, daily (4) Community acquired pneumonia: Difficult to get sputum culture. MRSA negative. Questionable pneumonitis on imaging. Continue with Levaquin and vancomycin which was added yesterday for possible cellulitis. (5) Down syndrome: Mother is advocate. Patient's speech is good but understanding of her medical condition is not complete. Plan Right lower limb cellulitis: Does have superficial DVT. Seems to be improving as per the nurse. Continue with vancomycin and Levaquin for now. MRSA negative. Dose vancomycin as per creatinine clearance. On discharge can switch to oral Augmentin and Levaquin. Other medical problems as outlined in past medical history. Regular diet. Protonix for PUD prophylaxis Full dose Eliquis will suffice as DVT prophylaxis. Discharge plan: Plan to discharge within next 24 hours to home with mother who remains hemodynamically stable Attestations Medical Necessity Statement*: Requires further hospitalization for management of significant pulmonary embolus with right heart strain in a patient with baseline Down syndrome Diagnoses Pulmonary emboli I26.99 Acute respiratory failure with hypoxia and hypercapnia J96.01; J96.02 Anemia D64.9 Community acquired pneumonia J18.9 Down syndrome Q90.9
[2022-11-06] MEDS: montelukast sodium 10 mg Tablet PO (20:36)
--- NOTE | 2022-11-06 21:32 | PC.NURSE ---
Upon assessment, this nurse began palpitation on patients abdomen where patient stated that she had everyday chronic pain in upper epigastric region. Patient verifies that this pain is not new.
[2022-11-07] VITALS (14 sets, daily range): BP systolic 92–118; BP diastolic 52–89; PULSE 79–98; RESP 16–29; TEMP 36.8–37.2; O2SAT 94–99
[2022-11-07] MEDS: acetaminophen 325 mg Tablet 650 MG PO (02:20)
[2022-11-07] MEDS: ipratropium-albuterol 3 mL Neb INHALATION ×2 (03:09→08:31)
[2022-11-07 05:08] LABS: Basophils # 0.1 10^3/uL (0.0-0.1); Basophils % 1.4 %; Eosinophils # 0.2 10^3/uL (0.0-0.8); Eosinophils % 2.4 %; Hematocrit 34.1 % (37.0-47.0); Lymphocytes # 1.4 10^3/uL (0.8-4.8); Lymphocytes % 19.8 %; Mean Corpuscular HGB Conc 29.3 g/dL (30.0-36.0); Mean Corpuscular Hemoglobin 28.1 pg (28.0-34.0); Mean Corpuscular Volume 95.8 fl (81-99); Mean Platelet Volume 10.1 fL (7.4-10.4); Monocytes # 0.7 10^3/uL (0.2-0.9); Monocytes % 9.1 %; Neutrophils # 4.69 10^3/uL (1.8-7.7); Nucleated Red Blood Cells % 0 %; Platelet Count 364 10^3/cmm (130-400); Red Blood Count 3.56 10^6/uL (4.1-5.3); White Blood Count 7.1 10^3/uL (4.0-10.0)
[2022-11-07 05:30] LABS: Alanine Aminotransferase 6 U/L (0-33); Albumin Level 2.8 g/dL (3.5-5.2); Alkaline Phosphatase 70 U/L (35-105); Anion Gap 12.4 (5-19); Aspartate Amino Transferase 6 U/L (0-32); Blood Urea Nitrogen 15 mg/dL (6-20); Calcium 8.2 mg/dL (8.5-10.5); Carbon Dioxide 34 mmol/L (22-29); Chloride 94 mmol/L (98-107); Globulin 3.7 g/dL (1.3-4.6); Glomerular Filtration Rate 95.2 mL/min (90-130); Glucose 98 mg/dL (65-115); Osmolality Calculated 283 mOsm/kg (285-295); Potassium 4.4 mmol/L (3.5-5.1); Sodium 136 mmol/L (136-145); Total Bilirubin 0.3 mg/dL (0.15-1.2); Total Protein 6.5 g/dL (6.6-8.7)
[2022-11-07 06:15] LABS: Vancomycin Trough 10.9 ug/mL (10-15)
[2022-11-07] MEDS: vancomycin 2,000 MG/400 ML PIGGYBACK 200 MG IV (07:32)
[2022-11-07] MEDS: spironolactone 25 mg Tablet PO (08:26)
[2022-11-07] MEDS: sennosides-docusate Tablet 1 TAB PO (08:26)
[2022-11-07] MEDS: FUROsemide 40 mg Tablet PO (08:27)
[2022-11-07] MEDS: pantoprazole DR 40 mg Tablet PO (08:27)
[2022-11-07] MEDS: apixaban 5 mg Tablet 10 MG PO (08:29)
--- NOTE | 2022-11-07 10:26 | PC.NURSE ---
up in chair with assist large bm noted at this time seble care done and am care watching tv
--- NOTE | 2022-11-07 10:42 | P.DS_ITS ---
Discharge Providers Date of Admission: 11/03/22 13:42 Date of Discharge: November 07, 2022 Attending Provider at Admission: Israel Nuno MD Attending Provider at Discharge: Yevgeniy Urias MD Primary Care Provider: Jorge Alex MD Diagnoses at Discharge Discharge Diagnosis (1) Pulmonary emboli: Status: Acute (2) Acute respiratory failure with hypoxia and hypercapnia: Status: Acute (3) Anemia: Status: Acute (4) Community acquired pneumonia: Status: Acute (5) Down syndrome: Status: Acute Reason for Visit Reason for Visit: Chest Pain Brief History: History as per HPI: Velma Valentino is a 37 year old female with trisomy 21 who comes into the emergency department with shortness of breath.? Mother noted she had been short of breath and coughing some since early this morning.? She may have had symptoms even yesterday.? She has trouble relating some of her symptoms secondary to her Down syndrome.? She also is having some chest discomfort.? She denies any chest discomfort now, and feels better on BiPAP.? No recent fevers.? Right leg has been swollen greater than left.? No vomiting.? No blood in stools, black or tarry stool.? No hematemesis.? No prior history of pulmonary embolism.? Does have history of hypercarbic respiratory failure. Hospital Course Hospital Course Patient was admitted to the ICU for further evaluation and management of pulmonary embolism with right heart strain. She was started on heparin drip. On admission she was also in acute hypoxic and hypercapnic respiratory failure for which she was started on oxygen supplementation along with CPAP at night and nebulization treatment. There were concerns for pneumonia on CT imaging and was started on empiric antibiotics. Patient was also found to have cellulitis of the leg for which she was started on broad-spectrum antibiotics. During hospitalization her blood culture remain negative. She continued to respond well to the treatment and has been on her baseline oxygen supplementation. She tolerated anticoagulation well and has been transitioned to Eliquis as per DVT/PE protocol. Safe discharge planning was discussed in detail with patient's mother at bedside who is agreeable for home health. She has been discharged in hemodynamically stable condition with home health on Eliquis 10 mg twice daily for next 3 days followed by 5 mg twice daily going forward. She is also to take Augmentin and Levaquin for next 5 days for cellulitis. She is to follow-up with her primary care provider within next 1 week. Physical Exam Narrative: General exam, white female, no respiratory distress, currently on 5 L Neck is obese supple without obvious mass Cardiovascular regular rate and rhythm without murmur. Lungs diminished breath sounds bilaterally. No wheezes or crackles Abdomen is soft, positive bowel sounds. Difficult to determine if any organomegaly is present. Nontender. exam demonstrates Faulkner Extremities right lower extremity with significant edema. Very slight erythema. Some pain. Pulses intact. Left with no significant edema. Cap refill brisk. Skin see findings above Discharge Data Studies Completed and Pending Completed Studies During Hospitalization Category Date Time Status CT angio chest PE protcl [id number] Stat Cat Scan 11/03/22 11:01 Completed XR chest 1V portable [id number] Stat Exams 11/03/22 09:14 [place] [id number] Routine Ultrasound 11/03/22 13:18 Completed CV. echo wo/w contrast [id number] Routine Ultrasound 11/03/22 13:18 Completed Pending at discharge Category Date Time Status Blood Culture AM LABS Lab 11/07/22 04:30 Results Sputum Culture and Gram Stain Routine Lab 11/03/22 13:26 Uncollected Radiology Impressions Chest X-Ray 11/03/22 09:14 Impression: Diffuse linear pulmonary opacities unchanged which may represent chronic interstitial lung disease. Chest CTA 11/03/22 11:01 IMPRESSION: 1. Subsegmental emboli LEFT upper and RIGHT lower lobes. Study is compromised by body habitus. There may be additional emboli which are obscured. 2. Mild RIGHT heart strain. 3. Scattered bilateral multifocal opacifications and atelectasis. Findings consistent with pneumonitis. Recommend follow-up to ensure resolution of the opacifications. 4. No effusions. Echocardiogram CONCLUSIONS ?Normal left ventricular size and systolic function, EF 63 %. No ?regional wall motion abnormalities. ?The right atrium and right relative do not visualized well. ?Left atrium appears to be of normal size. ?Mitral and aortic valve morphology appear to be within normal ?limits. ?There is no pericardial effusion. ?Technically very difficult study because of the poor ultrasonic ?window ? (Echo contrast - Optison was used to delineate the endocardium ?and to estimate the? LV ejection fraction) ?Dr Jones Delgadillo MD FAC ?(Electronically Signed) ?Final Date:? ? ? 03 November 2022 ? 17:59 Laboratory Results WBC 7.1 10^3/uL (4.0-10.0) 11/07/22 04:30 RBC 3.56 10^6/uL (4.1-5.3) L 11/07/22 04:30 Hgb 10.0 g/dL (11.5-15.3) L 11/07/22 04:30 Hct 34.1 % (37.0-47.0) L 11/07/22 04:30 MCV 95.8 fl (81-99) 11/07/22 04:30 MCH 28.1 pg (28.0-34.0) 11/07/22 04:30 MCHC 29.3 g/dL (30.0-36.0) L 11/07/22 04:30 RDW 17.0 % (12.1-15.1) H 11/07/22 04:30 Plt Count 364 10^3/cmm (130-400) 11/07/22 04:30 MPV 10.1 fL (7.4-10.4) 11/07/22 04:30 Neut % (Auto) 66.0 % 11/07/22 04:30 Lymph % (Auto) 19.8 % 11/07/22 04:30 [place] % (Auto) 9.1 % 11/07/22 04:30 Eos % (Auto) 2.4 % 11/07/22 04:30 Baso % (Auto) 1.4 % 11/07/22 04:30 Neut # (Auto) 4.69 10^3/uL (1.8-7.7) 11/07/22 04:30 Lymph # (Auto) 1.4 10^3/uL (0.8-4.8) 11/07/22 04:30 [place] # (Auto) 0.7 10^3/uL (0.2-0.9) 11/07/22 04:30 Eos # (Auto) 0.2 10^3/uL (0.0-0.8) 11/07/22 04:30 Baso # (Auto) 0.1 10^3/uL (0.0-0.1) 11/07/22 04:30 Nucleated RBC % (auto) 0 % 11/07/22 04:30 Nucleated RBCs # 0.0 /100WBC 11/07/22 04:30 APTT 65.3 SECONDS (23.9-36.7) H 11/05/22 07:15 Specimen Type Arterial 11/03/22 09:21 Sample Site Radial, left 11/03/22 09:21 ABG pH 7.38 (7.35-7.45) 11/03/22 09:21 ABG pCO2 67.2 mmHg (35-45) H* 11/03/22 09:21 ABG pO2 50.7 mmHg (80.0-100.0) L 11/03/22 09:21 ABG HCO3 39.3 mmol/L (22-26) H 11/03/22 09:21 ABG O2 Saturation 85.6 11/03/22 09:21 ABG Base Excess 11.7 mmol/L (-2.0-2.0) H 11/03/22 09:21 Kavon Test Pos 11/03/22 09:21 A-a O2 Gradient 2.4 mmHg (5-10) L 11/03/22 09:21 Hematocrit 34.2 % (37-47) L 11/03/22 09:21 Hgb O2 Saturation 83.7 % (95-100) L 11/03/22 09:21 Carboxyhemoglobin 1.9 %THgb (0.4-20.1) 11/03/22 09:21 Methemoglobin 0.4 % (0.4-1.5) 11/03/22 09:21 Total Hemoglobin 11.2 g/dL (12-16) L 11/03/22 09:21 Sodium 141.0 mmol/L (131-143) 11/03/22 09:21 Potassium 3.6 mmol/L (3.5-5.0) 11/03/22 09:21 Glucose 105.0 mg/dL (70-115) 11/03/22 09:21 Ionized Calcium 1.0 mmol/L (1.1-1.4) L 11/03/22 09:21 O2 Delivery Device Nc 11/03/22 09:21 O2 Liters/Min 6.0 % 11/03/22 09:21 Pad Machine Feeder ID [place] 11/03/22 09:21 Sodium 136 mmol/L (136-145) 11/07/22 04:30 Potassium 4.4 mmol/L (3.5-5.1) 11/07/22 04:30 Chloride 94 mmol/L (98-107) L 11/07/22 04:30 Carbon Dioxide 34 mmol/L (22-29) H 11/07/22 04:30 Anion Gap 12.4 (5-19) 11/07/22 04:30 BUN 15 mg/dL (6-20) 11/07/22 04:30 Creatinine 0.7 mg/dL (0.5-0.9) 11/07/22 04:30 GFR Calculation 95.2 mL/min (90-130) 11/07/22 04:30 Glucose 98 mg/dL (65-115) 11/07/22 04:30 Calculated Osmolality 283 mOsm/kg (285-295) L 11/07/22 04:30 Calcium 8.2 mg/dL (8.5-10.5) L 11/07/22 04:30 Magnesium 2.1 mg/dL (1.7-2.3) 11/04/22 04:21 Iron 27 ug/dL (37-145) L 11/06/22 04:06 TIBC 249 mcg/dl 11/06/22 04:06 % Saturation 10.8 % (20-50) L 11/06/22 04:06 Unsat Iron Binding 222 ug/dL (112-347) 11/06/22 04:06 Total Bilirubin 0.3 mg/dL (0.15-1.2) 11/07/22 04:30 AST 6 U/L (0-32) 11/07/22 04:30 ALT 6 U/L (0-33) 11/07/22 04:30 Alkaline Phosphatase 70 U/L (35-105) 11/07/22 04:30 Troponin T Baseline 10 ng/L (0-10) 11/03/22 09:41 Troponin T 120 Minute 12.46 ng/L (0-10) H 11/03/22 12:11 Delta Troponin T 2.46 ABS# (0-10) 11/03/22 12:11 Troponin T Hi Sens 6Hr 7.72 ng/L (0-10) 11/03/22 15:49 Troponin T Hi Sens 6Hr Delta -2.28 ng/L (0-12) L 11/03/22 15:49 C-Reactive Protein 89.1 mg/L (0.0-4.9) H 11/03/22 09:41 NT-Pro-B Natriuret Pep 36 pg/mL (0-125) 11/06/22 04:06 Total Protein 6.5 g/dL (6.6-8.7) L 11/07/22 04:30 Albumin 2.8 g/dL (3.5-5.2) L 11/07/22 04:30 Globulin 3.7 g/dL (1.3-4.6) 11/07/22 04:30 Vitamin B12 210 pg/mL (232-1245) L 11/06/22 04:06 Folate 8.8 ng/mL (4.8-37.3) 11/05/22 04:21 TSH 2.71 uIU/mL (0.27-4.20) 11/03/22 11:03 Vancomycin Trough 10.9 ug/mL (10-15) 11/07/22 04:30 Vitals Last Vital Signs Temp 98.2 F 11/07/22 10:00 Pulse 90 11/07/22 10:00 Resp 29 H 11/07/22 09:00 BP 106/72 11/07/22 09:00 Pulse Ox 98 11/07/22 10:00 O2 Del Method Nasal Cannula 11/07/22 08:25 O2 Flow Rate 5 11/07/22 08:25 FiO2 45 11/06/22 18:00 Discharge Plan Discharge Patient Disposition: Home Health Service Condition: Stable Prescriptions: New Ashok DVT-PE Treat 30D Start 5 mg (74 tabs) tablets,dose pack See Rx Instructions .ROUTE .COMPLEX Qty: 74 0RF Rx Instructions: orally per package directions Augmentin 500-125 mg tablet 1 tab PO BID Qty: 10 0RF levofloxacin 500 mg tablet 500 mg PO Q24H 5 Days Qty: 5 0RF Continued albuterol sulfate 90 mcg/actuation HFA aerosol inhaler 2 puff inhalation Q6H PRN (Reason: Shortness Of Breath) furosemide 40 mg tablet 40 mg PO DAILY albuterol sulfate 2.5 mg /3 mL (0.083 %) solution for nebulization 2.5 mg inhalation QID PRN (Reason: Wheezing) acetaminophen 500 mg tablet 500 mg PO QID PRN (Reason: Pain) Rx Instructions: 1-2 tabs every 6 hours as needed spironolactone 25 mg tablet 25 mg PO DAILY pantoprazole 40 mg tablet,delayed release (DR/EC) 40 mg PO DAILY montelukast 10 mg tablet 10 mg PO BEDTIME Advair Diskus 500-50 mcg/dose Blister With Device 1 inh INHALATION BID Discharge Orders: Discharge Order (Routine); Ordered 11/07/22 Ordered By: Yevgeniy Urias Referrals: Jorge Alex MD [Primary Care Provider] - 7-10 days Discharge Diet: Regular Discharge Activity: Resume usual activity Patient Instructions: Anemia, Amoxicillin (By mouth), Levofloxacin (By mouth), Apixaban (By mouth), Pulmonary Embolism (DC), Hypoxia (GEN), Opioid Safety Activity Restrictions/Additional Instructions: Take Eliquis which is a blood thinner 10 mg twice daily for next 3 days followed by 5 mg twice daily. Take Augmentin and Levaquin which are the antibiotics for next 5 days. Discharge Attestations Time Spent in Discharge Care*: greater than 30 min Specific Discharge Activities: educating and/or supporting family/caregiver, discussing with pcp/other providers, discussing with case finishing machine adjuster/social w orkers/dc planners, documenting/other paperwork and evaluating patient/reviewing data Status at Discharge: Cognitive status at discharge: moderately impaired cognition , Behavioral status at discharge: cooperative , Functional status at discharge: other assisted ambulation , Overall status at discharge: patient is back to baseline Quality Metrics Clinical Quality Measures [ No reported AMI, CVA or VTE this stay] Coding Level of Care Code 20432 Total time (in minutes) for Discharge: 60 Diagnoses Pulmonary emboli I26.99 Acute respiratory failure with hypoxia and hypercapnia J96.01; J96.02 Anemia D64.9 Community acquired pneumonia J18.9 Down syndrome Q90.9
== END 2022-11-07 12:00 | disposition home health service (06) | DRG 175 ==
LOC: ER 13:19 → ICU 13:42
PROVIDERS: Family Medicine; Admitting Provider Internal Medicine; Emergency Provider Family Medicine; PCP Family Medicine; Visit Provider Student in an Organized Health Care Education/Training Program
DX: I26.94 Multiple subsegmental thrombotic pulmonary emboli without acute cor pulmonale (principal); J18.9 Pneumonia, unspecified organism; J96.01 Acute respiratory failure with hypoxia; J96.22 Acute and chronic respiratory failure with hypercapnia; L03.115 Cellulitis of right lower limb; I50.32 Chronic diastolic (congestive) heart failure; E66.2 Morbid (severe) obesity with alveolar hypoventilation; Z68.43 Body mass index [BMI] 50.0-59.9, adult; D64.9 Anemia, unspecified; Q90.9 Down syndrome, unspecified; Z79.51 Long term (current) use of inhaled steroids; I35.0 Nonrheumatic aortic (valve) stenosis; J45.909 Unspecified asthma, uncomplicated; Q66.89 Other specified congenital deformities of feet; I27.20 Pulmonary hypertension, unspecified; Z99.89 Dependence on other enabling machines and devices; I80.01 Phlebitis and thrombophlebitis of superficial vessels of right lower extremity
CPT/HCPCS: 36415; 36600; 71045; 71275; 80048; 80051; 80053; 80202; 82330; 82607; 82746; 82805; 83540; 83550; 83735; 83880; 84443; 84484; 85025; 85730; 86140; 87040; 87641; 93005; 93970; 94640; 94660; 96365; 96366; 96367; 96375; 96376; 97161; 97530; 99291; C8929; J1644; J1940; J1956; J2405; J3372; J7626; Q9956; Q9967